=== PATIENT | female | born 2000 | race Caucasian/White ===

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

== ENCOUNTER 2022-06-13 01:28 | Emergency (ER) | payer OTHER, SELFPAY ==
--- NOTE | ~2022-06-13 | CT_ITS ---
EXAMINATION: CT ABDOMEN AND PELVIS WITH CONTRAST CLINICAL INFORMATION: Right lower quadrant pain COMPARISON: None TECHNIQUE: Multidetector volumetric images were obtained from the superior aspect of the liver through the pubic symphysis following administration 85 mL of Omnipaque 350 intravenous contrast. Sagittal and coronal reformatted images were obtained on the technologist's workstation. Oral contrast: No This CT examination was performed using dose optimization techniques as appropriate, variously including the following: *Automated exposure control *Adjustment of mA and/or kV according to patient size (this includes techniques or standardized protocols for targeted exams where dose is matched to indication/reason for exam; i.e. extremities or head) *Use of iterative reconstruction technique DLP: 277 mGy-cm FINDINGS: LUNG BASES: The visualized lung bases are unremarkable. LIVER, GALLBLADDER, AND BILIARY TREE: The liver is normal in size, shape, and attenuation. No focal hepatic lesion or biliary ductal dilatation is present. The gallbladder is unremarkable. PANCREAS: Unremarkable. SPLEEN: Unremarkable. ADRENAL GLANDS: Unremarkable. KIDNEYS AND URETERS: Bilateral nephrograms are symmetric. No hydronephrosis or obstructing calculus identified. BLADDER: Mildly distended and grossly unremarkable. GASTROINTESTINAL TRACT: Assessment for wall thickening in some segments of the colon is limited due to luminal collapse. No evidence of bowel obstruction. Appendix appears nondilated, located in the lateral right lower quadrant along the pelvic sidewall. No free fluid or free air is seen. ABDOMINAL WALL: No significant hernia is appreciated. LYMPH NODES: Normal. VASCULAR: Unremarkable. PELVIC VISCERA: Unremarkable. OSSEOUS STRUCTURES: Bilateral L5 pars defects noted. CT/CT abdomen pelvis w IV con IMPRESSION: No findings to suggest appendicitis. There is limited assessment for wall thickening in some segments of the colon due to luminal collapse; the possibility of a mild colitis would be difficult to exclude in the proper clinical setting.
[2022-06-13 01:47] VITALS: BP 104/70; PULSE 65; RESP 16; TEMP 36.4; O2SAT 99; BMI 19.0
[2022-06-13 02:02] LABS: Hematocrit 41.2 % (37.0-47.0); Hemoglobin 13.2 g/dl (12.0-16.0); Mean Corpuscular Hemoglobin 25.8 pg (27.0-33.0); Mean Corpuscular Volume 80.5 fL (80.0-98.0); Mean Platelet Volume 10.2 fL (9.4-12.3); Platelet Count 242 X10*3/uL (160-400); Red Blood Count 5.12 X10*6/uL (4.20-5.50); Red Cell Distribution Width 13.5 % (11.0-16.0); White Blood Count 13.2 X10*3/uL (4.8-10.8)
[2022-06-13 02:05] LABS: Glucose, Whole Blood 99 mg/dL (60-115)
[2022-06-13] MEDS: 0.9 % Sodium Chloride 1,000 ML 999 ML IV (02:10)
[2022-06-13] MEDS: ondansetron HCL 4 MG/2 ML VIAL IVPUSH (02:11)
--- NOTE | 2022-06-13 02:13 | ED.NAVMDI ---
HPI - Nausea/Vomiting/Diarrhea General Chief complaint: Abdominal Pain Stated complaint: n/v/d Time Seen by Provider: 06/13/22 02:13 Source: patient and family (Mother) Mode of arrival: ambulatory History of Present Illness HPI Narrative: 22-year-old female without significant past medical history presents with onset of multiple episodes of nausea and vomiting as well as diarrhea approximately 2 hours ago but denies any abdominal pain and states her LMP was the 1st part of this month. As per the triage note patient reports mid abdominal pain but when I asked her she denied it. She otherwise denies any fever or chills and denies any urinary symptoms. Related Data Previous Rx's Medication Instructions Recorded ondansetron HCl 4 mg tablet 4 mg PO Q8H PRN nausea and 06/13/22 vomiting 4 days #7 tabs Allergies Allergy/AdvReac Type Severity Reaction Status Date / Time No Known Allergies Allergy Unverified 01/02/20 17:05 Review of Systems Review of Systems: Pertinent positives and negatives as stated in HPI [facility] Past Medical History Source: nursing notes reviewed Social History Social History Alcohol intake: never Smoked in Last 30 Days: No Use of substances other than those prescribed or required for medical reasons: No Advance Directives: No Advance Directives Information Provided: Yes Physical Exam Vital Signs: Vital Signs: Last Vital Signs Temp 98.3 F 06/13/22 02:59 Pulse 85 06/13/22 02:59 Resp 12 06/13/22 02:59 BP 98/57 L 06/13/22 02:59 Pulse Ox 99 06/13/22 02:59 O2 Del Method 06/13/22 02:59 BMI result Body Mass Index 19.0 VITAL SIGNS: Reviewed. GENERAL: Appears very slender, in mild distress. HEAD: Normocephalic/atraumatic EYES: PERRLA, EOMI LUNGS: Normal breath sounds. No adventitious sounds or accessory muscle use. SpO2<99> CARDIOVASCULAR: Regular rate and rhythm without noted murmurs ABDOMEN: Soft, non-tender, non-distended with bowel sounds. MUSCULOSKELETAL: No tenderness, deformities, or effusions noted on gross inspection. EXTREMITIES: No cyanosis, clubbing or edema. SKIN: Inspection of the skin reveals no rashes, but pasty color NEUROLOGIC: Alert and oriented x 3. Strength and sensation to light touch were grossly intact x 4. Medications Administered Discontinued Medications Generic Name Dose Route Start Last Admin Trade Name Landon PRN Reason Stop Dose Admin Sodium Chloride 1,000 mls @ 999 mls/hr 06/13/22 02:00 06/13/22 02:10 Ns IV 06/13/22 03:00 999 mls/hr .Q1H1M STA Administration Iohexol 85 ml 06/13/22 03:09 06/13/22 03:09 Iohexol 350 Mg/Ml 100 Ml Infus..Btl IV 06/13/22 03:10 85 ml ONCE ONE Administration Ondansetron HCl 4 mg 06/13/22 02:00 06/13/22 02:11 Ondansetron Hcl 4 Mg/2 Ml Vial IVPUSH 06/13/22 02:01 4 mg ONCE ONE Administration Medical Decision Making Medical Decision Making MDM Narrative: 22-year-old female with multiple episodes of nausea, vomiting, diarrhea with questionable abdominal discomfort and LMP 4 weeks ago as well as what sounds like a vasovagal episode while out in the waiting area. IV access was obtained she will receive IV for this as well as Zofran for nausea and will obtain basic lab work. On re-evaluation after IV fluids, antiemetics, patient is feeling much better and is tolerating oral intake and has significantly improved. On my evaluation of all investigations my interpretation is that patient has a gastroenteritis that led to significant volume depletion and a vasovagal episode. All results discussed with bedside with the patient. Differential Diagnosis Differential Diagnoses: The differential diagnosis associated with the presentation includes Please see the discussion above Lab Data 06/13/22 01:56 06/13/22 01:56 Labs: Lab Results 06/13/22 06/13/22 06/13/22 Range/Units 01:56 01:56 02:01 WBC 13.2 H (4.8-10.8) X10*3/uL RBC 5.12 (4.20-5.50) X10*6/uL Hgb 13.2 (12.0-16.0) g/dl Hct 41.2 (37.0-47.0) % MCV 80.5 (80.0-98.0) fL MCH 25.8 L (27.0-33.0) pg MCHC 32.0 (31.0-35.0) g/dl RDW 13.5 (11.0-16.0) % Plt Count 242 (160-400) X10*3/uL MPV 10.2 (9.4-12.3) fL Absolute Nucleated RBC 0.000 (0.0-0.012) X10*3/uL Nucleated RBC % (auto) 0.0 (0.0-0.2) /100WBC Sodium 140 (135-145) mmol/L Potassium 4.7 (3.3-5.1) mmol/L Chloride 108 (96-108) mmol/L Carbon Dioxide 22 (22-29) mmol/L Anion Gap 15 (12-20) BUN 18 H (9-16) mg/dL Creatinine 0.90 (0.5-1.4) mg/dL Estim Creat Clear Calc 74.2 Estimated GFR > 60 POC Glucose 99 (60-115) mg/dL Random Glucose 119 H (60-115) mg/dL Calcium 9.4 (8.4-10.2) mg/dL Total Bilirubin 0.5 (0.0-1.0) mg/dL Direct Bilirubin 0.2 (0.0-0.5) mg/dL AST 23 (5-31) U/L ALT 11 (0-31) U/L Alkaline Phosphatase 72 (39-117) U/L Total Protein 7.4 (6.5-8.0) g/dL Albumin 4.7 (3.5-5.0) g/dL Lipase 36 (8-78) U/L Beta HCG, Quant < 2 mIU/mL Urine Color Urine Appearance Urine pH (5.0-9.0) Ur Specific [place] (1.005-1.025) Urine Protein (Neg-Trace) mg/dL Urine Glucose (UA) (Negative) mg/dL Urine Ketones (Negative) mg/dL Urine Blood (Negative) Urine Nitrite (Negative) Ur Leukocyte Esterase (Negative) Urine RBC (0-2) /HPF Urine WBC (0-5) /HPF Ur Squamous Epith Cells (0-2) /HPF Urine Bacteria (None Seen) Hyaline Casts (0-2) /LPF Urine Opiates Screen (Not Detect) Urine Fentanyl Screen (Not Detect) Ur Barbiturates Screen (Not Detect) Ur Phencyclidine Scrn (Not Detect) Ur Amphetamines Screen (Not Detect) U Benzodiazepines Scrn (Not Detect) Urine Cocaine Screen (Not Detect) U Marijuana (THC) Screen (Not Detect) 06/13/22 06/13/22 Range/Units 03:35 03:35 WBC (4.8-10.8) X10*3/uL RBC (4.20-5.50) X10*6/uL Hgb (12.0-16.0) g/dl Hct (37.0-47.0) % MCV (80.0-98.0) fL MCH (27.0-33.0) pg MCHC (31.0-35.0) g/dl RDW (11.0-16.0) % Plt Count (160-400) X10*3/uL MPV (9.4-12.3) fL Absolute Nucleated RBC (0.0-0.012) X10*3/uL Nucleated RBC % (auto) (0.0-0.2) /100WBC Sodium (135-145) mmol/L Potassium (3.3-5.1) mmol/L Chloride (96-108) mmol/L Carbon Dioxide (22-29) mmol/L Anion Gap (12-20) BUN (9-16) mg/dL Creatinine (0.5-1.4) mg/dL Estim Creat Clear Calc Estimated GFR POC Glucose (60-115) mg/dL Random Glucose (60-115) mg/dL Calcium (8.4-10.2) mg/dL Total Bilirubin (0.0-1.0) mg/dL Direct Bilirubin (0.0-0.5) mg/dL AST (5-31) U/L ALT (0-31) U/L Alkaline Phosphatase (39-117) U/L Total Protein (6.5-8.0) g/dL Albumin (3.5-5.0) g/dL Lipase (8-78) U/L Beta HCG, Quant mIU/mL Urine Color Yellow Urine Appearance Clear Urine pH 6.0 (5.0-9.0) Ur Specific [place] >= 1.030 H (1.005-1.025) Urine Protein 30 (1+) H (Neg-Trace) mg/dL Urine Glucose (UA) Negative (Negative) mg/dL Urine Ketones Trace (Negative) mg/dL Urine Blood Negative (Negative) Urine Nitrite Negative (Negative) Ur Leukocyte Esterase Negative (Negative) Urine RBC 3-5 H (0-2) /HPF Urine WBC 0-5 (0-5) /HPF Ur Squamous Epith Cells 6-10 (0-2) /HPF Urine Bacteria None Seen (None Seen) Hyaline Casts 0-2 (0-2) /LPF Urine Opiates Screen Not Detected (Not Detect) Urine Fentanyl Screen Not Detected (Not Detect) Ur Barbiturates Screen Not Detected (Not Detect) Ur Phencyclidine Scrn Not Detected (Not Detect) Ur Amphetamines Screen Not Detected (Not Detect) U Benzodiazepines Scrn Not Detected (Not Detect) Urine Cocaine Screen Not Detected (Not Detect) U Marijuana (THC) Screen Not Detected (Not Detect) Independent Interpretation I performed an independent interpretation of an: EKG Interpretation: Normal sinus rhythm, HR-59, no STEMI, MO/QRS/QTC is within normal limits. Critical Care Time Critical Care Time Critical Care Time: Yes Total Critical Care Time: 30 Attestation: I personally attest to this time spent taking care of the patient. Discharge Plan Discharge Clinical Impression: Gastroenteritis, Syncope, vasovagal Patient Disposition: Home, Self-Care Instructions: Dehydration (ED), Syncope (ED), Gastroenteritis (ED) Additional Instructions: 1. Increase amount of fluid intake, especially with water. 2. A prescription for antinausea medication has been sent to your pharmacy. 3. I highly recommend that you follow-up with your primary care provider in the next 1-2 days by calling the office in the morning and setting an appointment for re-evaluation. Return to the ER for any worsening symptoms. Prescriptions: New ondansetron HCl 4 mg tablet 4 mg PO Q8H PRN (Reason: nausea and vomiting) 4 Days Qty: 7 0RF
--- NOTE | 2022-06-13 02:15 | PC.NURSE ---
pt a&o, no sob or chest pain, pt taken to draw labs and all of sudden started to pass out, pt pale and weak, pt taken to room in wheel chair, EKG, poc, labs and Iv placed, pt medicated per mar. Provider at the bedside to assess and perform a ultrasound of the abd at the bedside.
--- NOTE | 2022-06-13 02:30 | PC.NURSE ---
Addendum entered by Blessing Pina 06/13/22 04:15: PO fluids and crackers tolerated, denies nausea. States feeling better . Mom at bedside. Original Note: Pt awake and alert, pale in color, cool to touch, came in after N/V and syncopal episode in the waiting room, IV line placed, meds given as documented, provider at bedside.
[2022-06-13 02:31] LABS: Alanine Aminotransferase 11 U/L (0-31); Albumin Level 4.7 g/dL (3.5-5.0); Alkaline Phosphatase 72 U/L (39-117); Anion Gap 15 (12-20); Aspartate Amino Transferase 23 U/L (5-31); Bilirubin Direct 0.2 mg/dL (0.0-0.5); Bilirubin Total 0.5 mg/dL (0.0-1.0); Blood Urea Nitrogen 18 mg/dL (9-16); Calcium 9.4 mg/dL (8.4-10.2); Carbon Dioxide 22 mmol/L (22-29); Chloride 108 mmol/L (96-108); Creatinine Clr Calc Pharmacy 74.2; Estimated Glomerular Filt Rate > 60; Glucose Random 119 mg/dL (60-115); Lipase 36 U/L (8-78); Potassium 4.7 mmol/L (3.3-5.1); Sodium 140 mmol/L (135-145); Total Protein 7.4 g/dL (6.5-8.0)
[2022-06-13 02:33] LABS: HCG Quantitative < 2 mIU/mL
[2022-06-13 02:59] VITALS: BP 98/57; PULSE 85; RESP 12; TEMP 36.8; O2SAT 99
[2022-06-13] MEDS: iohexoL 350 MG/ML 100 ML INFUS..BTL 85 ML IV (03:09)
[2022-06-13 03:41] LABS: Appearance Urine Clear; Color Urine Yellow; Glucose Urine UA Negative (Negative); Leukocyte Esterase Urine Negative (Negative); Nitrite Urine Negative (Negative); Specific Gravity - Urine >= 1.030 (1.005-1.025); UMIC TRIGGER UACC YES; Urine Blood Negative (Negative); Urine Ketones Trace mg/dL (Negative); Urine Protein 30 (1+) mg/dL (Neg-Trace)
[2022-06-13 03:46] LABS: Bacteria Urine None Seen (None Seen); Hyaline Casts Urine 0-2 /LPF (0-2); WBC Urine 0-5 /HPF (0-5)
[2022-06-13 03:52] LABS: Amphetamine Screen Urine Not Detected (Not Detect); Barbiturates, Urine Not Detected (Not Detect); Benzodiazepines Screen Urine Not Detected (Not Detect); Cannabinoid Screen Urine Not Detected (Not Detect); Cocaine Screen Urine Not Detected (Not Detect); Fentanyl, urine Not Detected (Not Detect); Opiate Screen Urine Not Detected (Not Detect); Phencyclidine Screen Urine Not Detected (Not Detect)
--- NOTE | 2022-06-13 07:49 | ECG_ITS ---
Test Reason : CHEST PAIN Blood Pressure : / mmHG Vent. Rate : 059 BPM Atrial Rate : 059 BPM P-R Int : 128 ms QRS Dur : 084 ms QT Int : 414 ms P-R-T Axes : 073 067 035 degrees QTc Int : 409 ms Sinus bradycardia Otherwise normal ECG No previous ECGs available Referred By: Rosio Gordon Electronically Signed By:JUVENCIO SALAZAR MD
== END 2022-06-13 04:28 | disposition home or self-care (01) ==
PROVIDERS: Emergency Provider Student in an Organized Health Care Education/Training Program
DX: K52.9 Noninfective gastroenteritis and colitis, unspecified (principal); R55 Syncope and collapse; E86.0 Dehydration; R11.2 Nausea with vomiting, unspecified; R10.9 Unspecified abdominal pain; R00.1 Bradycardia, unspecified; R63.6 Underweight; Z68.1 Body mass index [BMI] 19.9 or less, adult
CPT/HCPCS: 36415; 74177; 80053; 80307; 81001; 82248; 82947; 83690; 84702; 85027; 93005; 96361; 96374; 99284; 99285; J2405; Q9967

== ENCOUNTER 2024-03-08 14:59 | Outpatient (AMB) | payer OTHER, SELFPAY ==
[2024-03-08 15:02] VITALS: BP 106/62; PULSE 76; O2SAT 98; BMI 19.2
--- NOTE | 2024-03-08 15:02 | AM.OFFWIN_ITS ---
Intake Vital Signs 03/08/24 15:02 Height 5 ft 2 in Weight 105 lb BMI 19.2 BP 106/62 Blood Pressure Location Rt brachial Position Sitting Pulse 76 Pulse Source Pulse Oximeter Pulse Oximetry (%) 98 Intake Visit Reasons: EP Nausea, feels faint Intake Note: pt is here for nausea, feels faint, ongoing for 4 or 5 days Patient Tobacco Use Status: Never used Tobacco Allergies No Known Allergies Allergy (Verified 03/08/24 15:03) Do you need a note to return to daycare/school/sports/work: No HPI HPI Comments History of Present Illness Details 23 y/o female patient who presents to [facility] walk [facility] clinic with c/o Nausea and poor appetite. Reports feeling weak, tired and low energy for the past 4-5 days. Denies vomiting, fevers or chills. Sexually active with 1 male partner - Condoms. LMP:Last week. No contraception besides Condoms. She works as a [employer] and she does work long hours and sometimes goes without eating for hours. Reports forcing herself to eat, because she does not have good appetite. She reports going to the Gym daily, and usually does lift heavy weights. Denies any mental health problems. Denies Bulimia or Anorexia Nervosa. She was seen by Pediatrics until the Age of 22. She has an Appointment with Adult PCP next year 07/2024. Denies any chronic medical problems and does not take any prescribed medications. [facility] Social History (System 01/31/23 @ 12:49 by Beatrice Leong) Alcohol intake: never Patient Tobacco Use Status: Never used Tobacco Review of Systems Const All systems reviewed & are unremarkable except as noted in HPI and below Physical Exam Vital Signs: Last Vital Signs Pulse 76 03/08/24 15:02 BP 106/62 03/08/24 15:02 Pulse Ox 98 03/08/24 15:02 BMI result Body Mass Index 19.2 Const General: cooperative, comfortable and no acute distress Nutritional Appearance: thin Orientation/consciousness: patient oriented x3 GI Inspection: Yes normal to inspection Palpation (GI): Soft to palpation, not firm, nontender, no guarding, not rigid and No hepatosplenomegaly present Auscultation: normal bowel sounds Rectal Exam - Female: deferred General: Yes no CVA tenderness Back/Spine/Pelvis Back: no CVA tenderness Neuro General: patient oriented x3, gait normal and moves all extremities Psych Speech and movement: Normal speech and movement present Results AMB Test Urine AMB Test Urine Negative Last Edit by Reena Sanchez CMA on 15:33 Results Reviewed Results Reviewed: Laboratory Last Values Tst Clinic Negative 03/08/24 15:32 Assessment & Plan Assessment & Plan (1) Nausea and vomiting in adult: Code(s): R11.2 - Nausea with vomiting, unspecified Plan: Ordered Urine HCG (NEGATIVE) Ordered Zofran F/U with PCP as scheduled. Avoid Oily, Spicy and [place] foods. Orders: Orders AMB HCG Urine Test Today Z32.02 - Encounter for test, result negative Medications: New ondansetron 8 mg PO Q8H 30 tabs 0RF R11.2 - Nausea with vomiting, unspecified Discontinued ondansetron HCl Discontinued Reason: Patient Completed Course 4 mg PO Q8H 4 days PRN 7 tabs 0RF nausea and vomiting Coding Level of Care Code Est Pt Level 3 (39168) Diagnoses Nausea and vomiting in adult R11.2 Time Spent (min) 15
== END 2024-03-08 15:52 | disposition home or self-care (01) ==
PROVIDERS: PCP Nurse Practitioner Family; Visit Provider Nurse Practitioner Family
DX: Z32.02 Encounter for pregnancy test, result negative (principal); R11.2 Nausea with vomiting, unspecified

== ENCOUNTER → 2024-03-08 14:59 | Outpatient (BNVA) | payer OTHER, MEDICAID, SELFPAY | PROVIDERS: PCP Nurse Practitioner Family; Visit Provider Nurse Practitioner Family | DX: R11.2 Nausea with vomiting, unspecified (principal); Z32.02 Encounter for pregnancy test, result negative | CPT/HCPCS: 81025 ==

== ENCOUNTER 2024-03-11 11:45 | Emergency (ER) | payer OTHER, SELFPAY ==
[2024-03-11 11:56] VITALS: BP 115/55; PULSE 62; RESP 16; TEMP 36.6; O2SAT 100; BMI 19.3
--- NOTE | 2024-03-11 12:04 | ED.GENADULT ---
HPI - General Adult General Chief complaint: Nausea/Vomiting/Diarrhea Stated complaint: nausea, dizzy Time Seen by Provider: 03/11/24 13:37 Source: patient Mode of arrival: ambulatory Limitations: no limitations History of Present Illness ED Provider: Nicky JOEL narrative: Patient is a 23-year-old female presenting to the ED with complaint of nausea after eating, denies nausea otherwise, as well as decreased appetite and lightheadedness for the past week. Denies abdominal pain, back or flank pain. States she is only eating around 1.5 meals per day, is also working out. Denies vomiting, diarrhea, constipation. Denies fevers. Denies chest pain, palpitations, dyspnea. Denies any changes in menstruation. Denies recent unprotected intercourse. Tolerating fluids without difficulty. MD complaint: nausea Onset (ago): week(s) Treatments prior to arrival: none Related Data Previous Rx's ?Medication ?Instructions ?Recorded ondansetron 8 mg disintegrating 8 mg PO Q8H #30 tabs 03/08/24 tablet famotidine 20 mg tablet 20 mg PO DAILY #14 tabs 03/11/24 Allergies Allergy/AdvReac Type Severity Reaction Status Date / Time No Known Allergies Allergy Verified 03/11/24 11:58 Review of Systems Review of Systems: As per HPI. Yes all other systems are reviewed and are negative Constitutional: Constitutional: Reports as per HPI [facility] Social History Social History (System 01/31/23 @ 12:49 by Beatrice Leong) Alcohol intake: never Patient Tobacco Use Status: Never used Tobacco Advance Directives: No Advance Directives Information Provided: Yes Do you have a plan to hurt others: No Plan Physical Exam ED Vital Signs: Vital Signs - 24 hr 03/11/24 11:56 03/11/24 13:34 03/11/24 14:15 Temperature 97.9 F 97 F Pulse Rate 62 56 Respiratory Rate 16 17 Blood Pressure 115/55 L 94/40 L Pulse Oximetry 100 100 Oxygen Delivery Method Room Air Room Air Room Air 03/11/24 14:22 03/11/24 14:23 03/11/24 14:23 Temperature Pulse Rate 56 60 80 Respiratory Rate Blood Pressure 94/40 L 94/53 L 106/73 Pulse Oximetry Oxygen Delivery Method BMI result Body Mass Index 19.3 Vital signs have been reviewed and appear to be correct. Blood pressure normal. Heart rate normal. Respiratory rate normal. Temperature normal. Oxygen saturation normal. Const General: cooperative, healthy appearing and no acute distress Orientation/consciousness: oriented to person, oriented to place, oriented to time and patient oriented x3 Limitations: no limitations HENMT Head: Yes normocephalic and Yes atraumatic Ears: external ears normal General nose exam: Normal external nose present Face and sinus: Yes face symmetric Mouth: oropharynx normal and moist mucous membranes Throat: Yes uvula midline Eyes Pupils: Equal, round and reactive pupils present Neck Neck: Yes normal visual inspection and Yes supple Resp Effort & Inspection: normal respiratory effort and able to speak in complete sentences Auscultation: clear to auscultation bilaterally Cardio Rate: regular rate Rhythm: regular rhythm Heart sounds: S1 normal heart sound present and S2 normal heart sound present GI Palpation (GI): Soft to palpation and nontender Auscultation: normoactive bowel sounds General: Yes no CVA tenderness Back/Spine/Pelvis Back: no CVA tenderness Skin General skin exam: elasticity normal and turgor normal Neuro General: oriented to person, oriented to place, oriented to time, patient oriented x3, moves all extremities, no focal motor deficits and CN's II-XI intact bilaterally Cranial nerves: Yes Equal, round and reactive pupils present Cognition (Neuro): normal cognition Extrem General: Yes full ROM, Yes no pedal edema and Yes no calf tenderness Psych Mental Status: mental status grossly normal Affect: normal affect Thought process: Normal thought process present Course Course Course Narrative: RME performed by Lenka Bolanos PA-C. Patient is a 23 year old assigned female at presenting to the emergency department with nausea, dizziness, and left breast pain. Patient states that over the last week she has had nausea, dizziness, and intermittent left breast pain. Patient states that she was previously told she had a left breast cyst. Detailed physical exam and review of systems are deferred to the physical therapy resident. Labs ordered. Patient placed back in the waiting room pending room availability and results. Medical Decision Making Medical Decision Making MDM Narrative: Patient is a 23-year-old female presenting to the ED with complaint of nausea after eating, denies nausea otherwise, as well as decreased appetite and lightheadedness for the past week. On exam patient is awake, A+Ox3, VS WNL, afebrile, normal neurological exam without focal deficits, physical exam findings as above. Given reported symptoms and physical exam findings, initial differential includes dehydration, electrolyte abnormality, gastritis, GERD, PUD, , UTI. Labs notable for mild anemia, not at transfusable level, no significant electrolyte abnormalities, negative HCG. No evidence of infection on urinalysis. Some mild orthostatic intolerance. Results discussed with patient and all questions answered. Advised patient to make slow transitions with position changes, increase fluid intake. Will refer to GI for further evaluation of symptoms. Will start on famotidine to see if this decreases her symptoms. Return precautions discussed. Patient verbalized understanding of and agreement with plan. Differential Diagnosis Differential Diagnoses: The differential diagnosis associated with the presentation includes As per [facility] Admission/Observation Consideration of admission/observation: Escalation of care including admission/observation considered Patient would have been admitted to the hospital had their work up had any findings where hospital admission was appropriate and their clinical presentation warranted hospital admission. Lab Data [facility] Lab Attestation statement: I reviewed the patient's lab results. As per [facility] 03/11/24 12:13 03/11/24 12:13 Labs: Lab Results 03/11/24 03/11/24 Range/Units 12:13 14:10 WBC 5.3 (4.8-10.8) X10*3/uL RBC 4.52 (4.20-5.50) X10*6/uL Hgb 11.7 L (12.0-16.0) g/dl Hct 35.5 L (37.0-47.0) % MCV 78.5 L (80.0-98.0) fL MCH 25.9 L (27.0-33.0) pg MCHC 33.0 (31.0-35.0) g/dl RDW 14.4 (11.0-16.0) % Plt Count 235 (160-400) X10*3/uL MPV 10.0 (9.4-12.3) fL Immature Gran % (Auto) 0.4 (0.0-0.4) % Neut % (Auto) 52.8 (45-73) % Lymph % (Auto) 39.8 (20-40) % Villalba % (Auto) 5.8 (2-11) % Eos % (Auto) 0.4 (0-4) % Baso % (Auto) 0.8 (0-2) % Lymph # (Auto) 2.1 (1.2-4.9) X10*3/uL [place] # (Auto) 0.3 (0.1-1.2) X10*3/uL Eos # (Auto) 0.0 (0.0-0.4) X10*3/uL Baso # (Auto) 0.0 (0.0-0.2) X10*3/uL Abs Immat Gran (auto) 0.02 (0.00-0.03) X10*3/uL Absolute Neuts (auto) 2.8 (2.0-8.3) x10*3/uL Absolute Nucleated RBC 0.000 (0.0-0.012) X10*3/uL Nucleated RBC % (auto) 0.0 (0.0-0.2) /100WBC Sodium 136 (135-145) mmol/L Potassium 3.5 (3.3-5.1) mmol/L Chloride 106 (96-108) mmol/L Carbon Dioxide 22 (22-29) mmol/L Anion Gap 12 (12-20) BUN 13 (9-16) mg/dL Creatinine 0.78 (0.5-1.4) mg/dL Estim Creat Clear Calc 88.9 Estimated GFR > 60 Random Glucose 104 (60-115) mg/dL Calcium 9.3 (8.4-10.2) mg/dL Magnesium 2.0 (1.6-2.6) mg/dL Total Bilirubin 0.4 (0.0-1.0) mg/dL AST 28 (5-31) U/L ALT 13 (0-31) U/L Alkaline Phosphatase 56 (39-117) U/L Total Protein 6.8 (6.5-8.0) g/dL Albumin 4.4 (3.5-5.0) g/dL Beta HCG, Quant < 2 mIU/mL Urine Color Yellow Urine Appearance Clear Urine pH 7.0 (5.0-9.0) Ur Specific [place] 1.025 (1.005-1.025) Urine Protein Negative (Neg-Trace) mg/dL Urine Glucose (UA) Negative (Negative) mg/dL Urine Ketones Negative (Negative) mg/dL Urine Blood Negative (Negative) Urine Nitrite Negative (Negative) Ur Leukocyte Esterase Trace H (Negative) External Record Review External record reviewed: Inpatient record, Office record and Outpatient record Prescription Management I considered prescription management with: Other Discharge Plan Discharge Clinical Impression: Gastritis Patient Disposition: Home, Self-Care Instructions: Gastritis (DC), Diet for Stomach Ulcers and Gastritis (ED), Upper Endoscopy (DC) Additional Instructions: You were evaluated in the emergency department today for nausea and lightheadedness. Your labs were reassuring. Your blood pressure did drop slightly with going from laying to sitting to standing. We recommend that you change positions slowly to prevent injury/fall. Be sure to drink plenty of fluids. You are being prescribed famotidine for your symptoms. We recommend that you follow up with the puddler helper for further evaluation of your symptoms. Call their office to schedule an appointment. Return to the emergency department if you develop fever, persistent vomiting, blood in your vomit, severe abdominal pain, fainting or any other concerning symptoms. Prescriptions: New famotidine 20 mg tablet 20 mg PO DAILY Qty: 14 0RF No Action ondansetron 8 mg tablet,disintegrating 8 mg PO Q8H Qty: 30 0RF Referrals: [facility] [place] Gastroenterology Services [Provider Group] Stand Alone Forms: Work/School Release Print Language: Persian
[2024-03-11 12:16] LABS: MANUAL DIFF FLAG NO
[2024-03-11 12:20] LABS: Basophils Percent Auto 0.8 % (0-2); Eosinophils Percent Auto 0.4 % (0-4); Hematocrit 35.5 % (37.0-47.0); Hemoglobin 11.7 g/dl (12.0-16.0); Imm Gran Abs Auto 0.02 X10*3/uL (0.00-0.03); Imm Gran Pct Auto 0.4 % (0.0-0.4); Lymphocytes Absolute Auto 2.1 X10*3/uL (1.2-4.9); Lymphocytes Percent Auto 39.8 % (20-40); Mean Corpuscular Hemoglobin 25.9 pg (27.0-33.0); Mean Corpuscular Volume 78.5 fL (80.0-98.0); Monocytes Absolute Auto 0.3 X10*3/uL (0.1-1.2); Monocytes Percent Auto 5.8 % (2-11); Neutrophils Absolute Auto 2.8 x10*3/uL (2.0-8.3); Neutrophils Percent Auto 52.8 % (45-73); Platelet Count 235 X10*3/uL (160-400); Red Blood Count 4.52 X10*6/uL (4.20-5.50); Red Cell Distribution Width 14.4 % (11.0-16.0); White Blood Count 5.3 X10*3/uL (4.8-10.8)
[2024-03-11 12:38] LABS: Alanine Aminotransferase 13 U/L (0-31); Albumin Level 4.4 g/dL (3.5-5.0); Alkaline Phosphatase 56 U/L (39-117); Anion Gap 12 (12-20); Aspartate Amino Transferase 28 U/L (5-31); Bilirubin Total 0.4 mg/dL (0.0-1.0); Blood Urea Nitrogen 13 mg/dL (9-16); Calcium 9.3 mg/dL (8.4-10.2); Carbon Dioxide 22 mmol/L (22-29); Chloride 106 mmol/L (96-108); Creatinine Clr Calc Pharmacy 88.9; Estimated Glomerular Filt Rate > 60; Glucose Random 104 mg/dL (60-115); Potassium 3.5 mmol/L (3.3-5.1); Sodium 136 mmol/L (135-145); Total Protein 6.8 g/dL (6.5-8.0)
[2024-03-11 12:46] LABS: HCG Quantitative < 2 mIU/mL
[2024-03-11 14:15] VITALS: BP 94/40; PULSE 56; RESP 17; TEMP 36.1; O2SAT 100
[2024-03-11 14:20] LABS: Appearance Urine Clear; Color Urine Yellow; Glucose Urine UA Negative (Negative); Leukocyte Esterase Urine Trace (Negative); Nitrite Urine Negative (Negative); Specific Gravity - Urine 1.025 (1.005-1.025); UMIC TRIGGER UACC YES; Urine Blood Negative (Negative); Urine Ketones Negative (Negative); Urine Protein Negative (Neg-Trace)
[2024-03-11 14:22] VITALS: BP 94/40; PULSE 56
[2024-03-11 14:23] VITALS: BP 106/73; BP 94/53; PULSE 60; PULSE 80
[2024-03-11 14:35] LABS: Bacteria Urine None Seen (None Seen); Hyaline Casts Urine 0-2 /LPF (0-2); RBC Urine 0-2 /HPF (0-2); WBC Urine 0-5 /HPF (0-5)
[2024-03-11 15:01] VITALS: BP 106/73; PULSE 80; RESP 18; TEMP 36.1; O2SAT 100
== END 2024-03-11 15:02 | disposition home or self-care (01) ==
PROVIDERS: Physician Assistant Medical; Emergency Provider Emergency Medicine; PCP Nurse Practitioner Family
DX: K29.70 Gastritis, unspecified, without bleeding (principal); R10.9 Unspecified abdominal pain; R11.0 Nausea; R63.0 Anorexia; R42 Dizziness and giddiness; Z68.1 Body mass index [BMI] 19.9 or less, adult
CPT/HCPCS: 36415; 80053; 81001; 83735; 84702; 85025; 99283; 99284

== ENCOUNTER 2024-05-09 12:27 | Outpatient (AMB) | payer OTHER, SELFPAY ==
--- NOTE | 2024-05-09 13:11 | MHC.OFFWIV ---
Intake Vital Signs 05/09/24 13:13 Weight 108 lb BP 102/60 Blood Pressure Location Rt brachial Position Sitting Pulse 59 Pulse Source Pulse Oximeter Pulse Oximetry (%) 99 Oxygen Delivery Method Room Air Intake Visit Reasons: EP chest pain, difficulty breathing Intake Note: Patient here for chest pain/tightness, difficulty breathing. Patient Tobacco Use Status: Never used Tobacco Allergies No Known Allergies Allergy (Verified 05/09/24 13:14) Do you need a note to return to daycare/school/sports/work: No HPI HPI Comments History of Present Illness Details History of Present Illness The patient is a 24-year-old female presenting with dizziness and chest pain. - Her symptoms began about five to six days prior to the visit, characterized by dizziness and chest pain with some radiating discomfort to the back. - The patient has also experienced nausea and excessive sweating episodes, especially after feeling hot . - There is no current cough, congestion, or known recent exposure to illnesses. No ear pain, sinus pain or headaches. - Her medical history includes asthma, which primarily affected her during childhood. - Current symptoms may be related to a reactivation of asthma, as she does not have access to an inhaler and cold air might be a trigger. - She denies any history of anxiety or increased stress levels that could contribute to these symptoms. Physical Exam General: Cooperative, healthy appearing, comfortable, no acute distress and well developed Orientation: Patient oriented x3 Limitations: No limitations Head: Normal to inspection Ears: Hearing grossly normal bilaterally Nose: Normal external nose present Face and sinus: Normal facial exam Eyes: Appearance normal, both eyes and all related structures Neck: Normal visual inspection and Yes full ROM Respiratory: Normal respiratory effort and able to speak in complete sentences. Clear to auscultation bilaterally, no wheezing noted Cardiovascular: Regular rate and rhythm. Normal S1 and S2 Skin: No rashes or lesions noted Neuro: Patient oriented x3 Extremities: Normal to inspection [facility] Social History (System 01/31/23 @ 12:49 by Beatrice Leong) Alcohol intake: never Patient Tobacco Use Status: Never used Tobacco Review of Systems Const All systems reviewed & are unremarkable except as noted in HPI and below Physical Exam Vital Signs: Last Vital Signs Pulse 59 05/09/24 13:13 BP 102/60 05/09/24 13:13 Pulse Ox 99 05/09/24 13:13 Oxygen Delivery Method Room Air 05/09/24 13:13 Office Procedures EKG Details: 62BPM NSR no acute st or t wave changes 38066-[id number], Complete Assessment & Plan Assessment & Plan (1) Chest pain: Code(s): R07.9 - Chest pain, unspecified Qualifiers: Chest pain type: other chest pain Qualified Code(s): R07.89 - Other chest pain Plan: Vital signs are normal with an oxygen saturation of 99%, heart rate at 60 bpm, and blood pressure normal. The primary focus is on managing potential reactivation of asthma causing dizziness and chest pain. As symptoms may be precipitated by cold air, a nebulizer treatment was provided to assess improvement. Gave pt albuterol inhaler in office with relief of symptoms. This suggests asthma as the cause; thus, an inhaler will be prescribed for use during similar exposures. Her EKG NSR @62BPM with no acute st or t wave changes and physical evaluation have shown no urgent issues; therefore, symptom control with proper medication (inhaler) and avoiding triggers (cold air) will be emphasized. Sent albuterol inhaler to pharmacy. Patient was informed and verbally consented to the use of an ambient scribe for clinic note documentation during this visit. Orders: Orders AMB Nebulizer Treatment Today R07.89 - Other chest pain Medications: New albuterol sulfate 2.5 mg (3 mL) inhalation ONCE 3 mL 0RF wheezing R07.89 - Other chest pain albuterol sulfate 90 mcg/actuation 2 puffs inhalation Q6H PRN 8.5 grams 0RF shortness of breath or wheezing or cough Coding Level of Care Code New Pt Level 4 (29096) Diagnoses Other chest pain R07.89 Chest pain type: other chest pain CPT Codes EKG - CPT: 41670-[id number], Complete ([id number])
[2024-05-09 13:13] VITALS: BP 102/60; PULSE 59; O2SAT 99
== END 2024-05-09 14:15 | disposition home or self-care (01) ==
PROVIDERS: Visit Provider Physician Assistant
DX: R07.89 Other chest pain (principal)

== ENCOUNTER → 2024-05-09 12:27 | Outpatient (BNVA) | payer OTHER, SELFPAY | PROVIDERS: Visit Provider Physician Assistant | DX: R07.89 Other chest pain (principal); J45.909 Unspecified asthma, uncomplicated | CPT/HCPCS: 93005; 94640 ==

== ENCOUNTER 2024-06-03 09:32 | Outpatient (AMB) | payer SELFPAY ==
--- OUTSIDE RECORDS SUMMARY | 2024-06-03 09:35 | XMS_ITS | Encounter Summary ---
Author Organization [facility] Address [address] [place] [address] Phone Care Team Providers Care Coater Slate Name Role Phone Lazara Valdez MD Primary Care Provider Encounter Details Date Type Department Care Team (Late st Contact Info) Description 12/18/2009 Documentation [facility] Family Medicine [address] [place] [address] Family Medicine, Physician [address] [place], [place] [phone] Social History Tobacco Use Types Packs/Day Years Used Date Smoking Tobacco: Never Assessed Comments Unknown Sex and Gender Information Value Date Recorded Sex Assigned at Not on file Legal Sex Female 5:12 PM EDT Gender Identity Not on file Sexual Orientation Not on file documented as of this encounter Plan of Treatment Not on file documented as of this encounter Visit Diagnoses Not on filedocumented in this encounter Care Teams Coater Slate Relationship Specialty Start Date End Date Lazara Valdez MD [address] [place] [phone] PCP - General 11/25/16 03/27/23 documented as of this encounter
--- OUTSIDE RECORDS SUMMARY | 2024-06-03 09:35 | XMS_ITS | Encounter Summary ---
Author Organization [facility] Address [address] [place] [phone] Phone Care Team Providers Care Compliance Spec Name Role Phone Lazara Valdez MD Primary Care Provider Encounter Details Date Type Department Care Team (Late st Contact Info) Description 12/01/2016 Conversion Encounter [facility] [address] [place] [address] Social History Tobacco Use Types Packs/Day Years Used Date Smoking Tobacco: Never Comments:Never smoker Comments Unknown Sex and Gender Information Value Date Recorded Sex Assigned at Not on file Legal Sex Female 5:12 PM EDT Gender Identity Not on file Sexual Orientation Not on file documented as of this encounter Plan of Treatment Not on file documented as of this encounter Visit Diagnoses Not on filedocumented in this encounter Care Teams Compliance Spec Relationship Specialty Start Date End Date Lazara Valdez MD [address] [place] [address] PCP - General 11/25/16 03/27/23 documented as of this encounter
--- OUTSIDE RECORDS SUMMARY | 2024-06-03 09:35 | XMS_ITS | Encounter Summary ---
Author Organization [facility] Address [address] [place] [phone] Phone Care Team Providers Care Track Service Worker Name Role Phone Lazara Valdez MD Primary Care Provider Encounter Details Date Type Department Care Team (Late st Contact Info) Description 12/31/2009 Documentation [facility] Family Medicine [address] [place], [place] [phone] Family Medicine, Physician [address] [place], [place] [phone] Social History Tobacco Use Types Packs/Day Years [...] on filedocumented in this encounter Care Teams Track Service Worker Relationship Specialty Start Date End Date Lazara Valdez MD [address] [place] [phone] PCP - General 11/25/16 03/27/23 documented as of this encounter
--- OUTSIDE RECORDS SUMMARY | 2024-06-03 09:35 | XMS_ITS | Encounter Summary ---
Author Organization [facility] Address [address] [place] [address] Phone Care Team Providers Care [employer] Name Role Phone Lazara Valdez MD Primary Care Provider Encounter Details Date Type Department Care Team (Late st Contact Info) Description 01/06/2016 Documentation [facility] [place] Family Medicine [address] [place], [place] [phone] Family Medicine, Physician [address] [place], [place] [address]331 Social History Tobacco Use Types Packs/Day Years [...] on filedocumented in this encounter Care Teams [employer] Relationship Specialty Start Date End Date Lazara Valdez MD [address] [place] [phone] PCP - General 11/25/16 03/27/23 documented as of this encounter
--- OUTSIDE RECORDS SUMMARY | 2024-06-03 09:35 | XMS_ITS | Encounter Summary ---
Author Organization [facility] Address [address] [place] [address] Phone Care Team Providers Care Taker Away Name Role Phone Lazara Valdez MD Primary Care Provider Encounter Details Date Type Department Care Team (Late st Contact Info) Description 01/05/[address] [facility] Family Medicine [address] [place], [place] [phone] Family Medicine, Physician [address] [place], [place] [phone] Social History Tobacco Use Types Packs/Day Years [...] on filedocumented in this encounter Care Teams Taker Away Relationship Specialty Start Date End Date Lazara Valdez MD [address] [place] [phone] PCP - General 11/25/16 03/27/23 documented as of this encounter
--- OUTSIDE RECORDS SUMMARY | 2024-06-03 09:35 | XMS_ITS | Encounter Summary ---
Author Organization [facility] Address [address] [place] [address] Phone Care Team Providers Care Crane Engineer Name Role Phone Lazara Valdez MD Primary Care Provider Encounter Details Date Type Department Care Team (Late st Contact Info) Description 03/06/2010 Documentation [facility] [place] [address] [place], [place] [phone] Family Medicine, Physician [address] [place], [place] [address] Social History Tobacco Use Types Packs/Day Years [...] on filedocumented in this encounter Care Teams Crane Engineer Relationship Specialty Start Date End Date Lazara Valdez MD [address] [place] [phone] PCP - General 11/25/16 03/27/23 documented as of this encounter
--- OUTSIDE RECORDS SUMMARY | 2024-06-03 09:35 | XMS_ITS | Encounter Summary ---
Author Organization [facility] Address [address] [place] [phone] Phone Care Team Providers Care Tag Stringer Name Role Phone Lazara Valdez MD Primary Care Provider [phone] Encounter Details Date Type Department Care Team (Late st Contact Info) Description 12/28/2013 Documentation [facility] Family Medicine [address] [place], [place] [phone] Family Medicine, Physician [address] [place], [place] [address] Social History Tobacco Use Types Packs/Day Years [...] on filedocumented in this encounter Care Teams Tag Stringer Relationship Specialty Start Date End Date Lazara Valdez MD [address] [place] [phone] PCP - General 11/25/16 03/27/23 documented as of this encounter
--- OUTSIDE RECORDS SUMMARY | 2024-06-03 09:35 | XMS_ITS | Clinical Summary ---
Author Organization [facility] Address [address] [place] [phone] Phone Care Team Providers Care Smoking Tobacco Packer Hand Name Role Phone Unavailable Primary Care Provider Unavailabl e Allergies No known active allergies Medications albuterol HFA 108 (90 Base) MCG/ACT inhaler PROAIR HFA; inhale 2 puff by inhalation route every 4 - 6 hours as needed; 90 MCG; 08/29/2016; Active 7 Active Spacer/Aero-Holdi ng Chambers (OPTICHAMBER ADVANTAGE) miscIndications:M ild intermittent asthma without complication Use with MDI as instructed 1 each 8 Active Active Problems Problem Noted Date Diagnosed Date Anxiety 01/06/2022 Assessment & Plan (01/20/2022 10:40 AM EDT): Pt. With ongoing symptoms of anxiety as well as low appetite, difficulty with sleep made more difficult by current breakup. Pt. Would benefit from CBT strategies to notice thinking patterns and support coping. PLAN: 1. Follow up with [facility] two weeks 2. Patient goal is to report a reduction in time spent overthinking at night to improve ability to fall asleep. 3. Behavioral Recommendations: a. Do some type of physical activity daily, even just getting outdoors for brief walk. b. Do one thing enjoy each day. c. Allow time to feel sadness Assessment & Plan (01/06/2022 12:12 PM EDT): Pt. With ongoing symptoms of anxiety as well as low appetite, difficulty with sleep made more difficult by current breakup. Pt. Would benefit from CBT strategies to notice thinking patterns and support coping. PLAN: 1. Follow up with [facility] two weeks 2. Patient goal is to report a reduction in time spent overthinking at night to improve ability to fall asleep. 3. Behavioral Recommendations: a. Do some type of physical activity daily, even just getting outdoors for brief walk. b. Do one thing enjoy each day. c. Allow time to feel sadness History of COVID-19 04/21/2021 Overview (04/21/2021): 03/19/21 - stuffy nose, loss of taste and smell, headache, some difficulty breathing with activity 04/20/21 feeling weak a month later Innocent heart murmur 12/18/2020 Overview (12/18/2020): Persistent 12/2020. Assessment & Plan (12/18/2020 2:49 PM EDT): Per patient, she has always been told this. Persistent 12/2020. Mild intermittent asthma without complication Overview (12/05/2017): Albuterol as needed Resolved Problems Problem Noted Date Diagnosed Date Resolved Date Need for case management follow-up 01/08/2020 12/10/2020 Overview (01/08/2020): STD screen not done due to national shortage of tests Other headache syndrome 10/23/201811/16 Overview (01/08/2020): Seen by Dr. Musa, Neurologist, in October 2018. [place] to have migraine without aura - given Sumatriptan 50 mg, 1 tab as needed daily and instructed to avoid possible triggers (cheese, wine, chocolate, MSG), eat and sleep regularly, avoid daily pain meds, limit screen time, light exercise daily. 2019 - saw a chiropractor for a while which helped, now is doing okay, just lives with it Encounters Date Type Department Care Team Description 04/15/2024 Telephone [facility] [address] [place] [address] Lazara Valdez MD medical records from Last 3 Months Immunizations Immunization Administration Dates Next Due DTaP 5 06/13/2006, 4,2002,08/07,2002 HPV Vaccine 9 Valent 07/21/2015,02/14/2015,12/02 Hep A, ped/adol 12/02/2014,02/12/2014 Hep B, ped/adol 01/13/2003,2002,2002 Hib (HbOC) 08/01/2003 Hib (PRP-T) 2002,2002,2002 IPV 06/13/2006, 3,2002,05/22 Influenza Split 01/10/2012,12/10/2010 Influenza, injectable, MDCK, preservative free, quadrivalent 03/23/2016 Influenza, injectable, quadrivalent 02/14/2015 Influenza, injectable, quadr ivalent, preservative free 03/01/2022,01/08/2020,01/03/2019,05/02,12/28/2013,01/11/2013 Influenza, injectable, trivalent 008,02/15/2007,03/17/2006,04/08 MMR 04/09/2003 MMRV 06/13/2006 Meningococcal B Trumenba 01/21/2021,01/08/2020 Meningococcal Conj (Menactra) MCV4P 01/03/2019,1 Pneumococcal Conjugate 2002,2002,08/2002 Tdap 02/12/2014 Varicella 04/09/2003 Family History Medical History Relation Name Comments Breast cancer Maternal Grandmother Osteoporosis Maternal Grandmother Thyroid disease Maternal Grandmother Relation Name Status Comments Father Alive Father: Alive a nd well Half-Sister Alive Half sister (M) : Alive and well Maternal Grandmother Mother Margie Hurst Alive Mother : Alive and well Other great grandmoth er: Diabetes mellitus Paternal Grandmother Alive Paterna l grandmother: Deafness Social History Tobacco Use Types Packs/Day Years Used Date Smoking Tobacco: Never Smokeless Tobacco: Never Tobacco Cessation:Counseling Given: Yes Comments:Never smoker Alcohol Use Standard Drinks/Week Comments No 0 (1 standard drink = 0.6 oz pur e alcohol) Hunger/Food Answer Date Recorded In the last 12 months, did y ou or your family ever eat less than you felt you should because there wasn't enough money for food? No 03/01/2022 Stable Housing Answer Date Recorded Are you worried that in the next 2 months you may not have stable housing? No 03/01/2022 Transportation Concerns Answer Date Rec orded In the last 12 months, have you or your family ever had to go without healthcare because you didn't have a way to get there? No 03/01/2022 Hazards in Home Answer Date Recorded Think about the place you li ve. Do you have problems with any of the following? Pests (mice or roaches), mold, no/not working smoke detectors, water leaks, no window guards. No 2021 Financing Utilities Answer Date Recorde d In the last 12 months, has t he electric, gas, oil, or water company threatened to shut off your services in your home? No 03/01/2022 Safety at Home Answer Date Recorded Are you or your family worried about feeling saf e in your home? No 03/01/2022 Outside Support Answer Date Recorded Do you feel that you need mo re support from other people or programs to help you care for yourself or your family? No 03/01/2022 Understanding Health Concerns Answer Da te Recorded Do you need help understandi ng your or your child's healthcare needs (diagnosis, medications, plan, etc.)? No 03/01/2022 Financing Health Concerns Answer Date R ecorded In the last 12 months, was t here a time when your child needed to see a doctor or get medications or supplies but could not because of cost? No 03/01/2022 Missing School or Work Answer Date Donavon rded Did you or your child miss s chool or work because of a health problem that could have been avoided? No 03/01/2022 Comments No Sex and Gender Information Value Date Recorded Sex Assigned at Not on file Legal Sex Female 5:12 PM EDT Gender Identity Not on file Sexual Orientation Not on file Last Filed Vital Signs Vital Sign Reading Time Taken Comments Blood Pressure 112/67 03/01/2022 10:43 AM EST Pulse 56 03/01/2022 10:43 AM EST Temperature 37.1 ??C (98.7 ??F) 11/25/2021 3:27 PM ED T Respiratory Rate - - Oxygen Saturation - - Inhaled Oxygen Concentration - - Weight 48.4 kg (106 lb 12.8 oz) 022 10:43 AM EST Height 159.5 cm (5' 2.8 ) 03/01/2022 10 :43 AM EST Body Mass Index 19.04 03/01/2022 10:43 AM EST Plan of Treatment Health Maintenance Due Date Last Done Comments Influenza Vaccines (#1) 2023 03/01/20, 01/08/2020, 01/03/2019, Additional history exists COVID-19 Vaccine ( season) 2023 09/15/2020, 08/18/2020 DTaP,Tdap,and Td Vaccines (7 - Td or Tdap) 02/13/2024 02/12/2014, 06/13/2006, 09/23/2003, Additional history exists Pneumococcal Vaccine Aged Out 2002, 2002, 2002 No longer eligible based on patient's age to complete this topic Hepatitis B Vaccines Completed 01/13/2003, 2002, 2002 HIB Vaccines Completed 08/01/2003, 09/16, 2002, Additional history exists IPV Vaccines Completed 06/13/2006, 12/17, 2002, Additional history exists MMR Vaccines Completed 06/13/2006, 04/09/2003 Varicella Vaccines Completed 06/13/2006, 04/09/2003 Hepatitis A Vaccines Completed 12/02/2014, 02/13/20 14 HPV Vaccines Completed 07/21/2015, 01/17, 12/02/2014 Meningococcal Vaccine Completed 01/03/2019, 014 Men B Vaccine Completed 01/21/2021, 01/08/2020 Procedures * Due to [place] state law, this organization might not be sharing sensitive test results. Procedure Name Priority Date/Time Associated Diagnosis Comments CHLAMYDIA AND GONORRHEA, AMPLIFIED Routine 03/01/2022 11:20 AM EST Encounter for screening examination for chlamydial infection from Last 3 Months or Most Recently Relevant to Health Maintenance Results * Due to [place] state law, this organization might not be sharing sensitive test results. * Chlamydia and Gonorrhoea, Amplified (03/01/2022 11:20 AM EST) Chlamydia Trachomatis, DNA Probe NEGATIVE (NEG) [facility] Comment: No Chlamydia Trachomatis RNA detected in this patient's sample ? (REFERENCE RANGE/NORMAL VALUE: NOT DETECTED) ? Note: This test uses gang hemstitching machine operator- mediated amplification method to detect rRNA from C. Trachomatis URINE GC AMP PROBE NEGATIVE (NEG) [facility] Comment: No Neisseria Gonorrhoeae RNA detected in this patient's sample ? (REFERENCE RANGE/NORMAL VALUE: NOT DETECTED) ? NOTE: This test uses gang hemstitching machine operator-mediated amplification method to detect rRNA from N.Gonorrhoeae. A negative result does not preclude infection. In the case of a negative urine result, testing of an endocervical(female) or urethral (male) specimen is recommended if there is high clinical suspicion of infection. Due to very high sensitivity of Nucleic Acid Amplification Test, false positive results may occur. Therefore, specimen handling is extremely important. In patients in whom the disease is unlikely, additional sample for testing should be considered after an initial positive result. The performance characteristics of this test have not been evaluated in children. The Aptima Combo2 assay is not intended for the evaluation of suspected sexual abuse or for other medico-legal indications. The ordering provider should assess if the patient had consensual sex without risk of sexual abuse. Consult the [facility] if needed. Contact phone number . Therapeutic failure or success cannot be determined with the Aptima Combo2 assay since nucleic acid may persist following appropriate antimicrobial therapy. The Centers for Disease Control and Prevention (CDC) recommends confirmatory retesting using culture or a different nucleic acid amplification test when positive results occur, if indicated. Testing performed or reported by [facility], a Service of [facility], [facility] [place] [address] Jaime Jones MD, Classifying Machine Operator [facility]# [id number] Urine (Urine) 03/01/2022 11: 20 AM EST 03/01/2022 7:50 PM EST us Lazara Valdez MD LAB MICROBIOLOGY - GENERAL ORDERABLES Final Result [facility] from Last 3 Months or Most Recently Relevant to Health Maintenance
--- NOTE | 2024-06-03 09:38 | A.OFFPC_ITS ---
Vital Signs 06/03/24 09:40 Height 5 ft 2.6 in Weight 105 lb 8 oz BMI 18.9 BP 112/60 Blood Pressure Location Lt brachial Position Sitting Pulse 66 Pulse Source Pulse Oximeter Temp 98 F Temp Source Temporal Artery Scan Pulse Oximetry (%) 98 Oxygen Delivery Method Room Air Intake Visit Reasons: establish care Intake Note: Patient is a new patient here to establish care for Wellness visit. Transferring care from [facility]. Medical records have been requested and have not received. Cruise Coordinator Required: No Robot Programmer: Not Required per policy Accompanied by: Self / Same As Patient Allergies No Known Allergies Allergy (Verified 06/03/24 09:58) Medication List - Last Reconciled 06/03/24 by Abigail Flores PA-C No Known Home Meds Tobacco use date assessed: 06/03/24 Dental Screening Dental Screen Date: 06/03/24 Did you have a dental visit in the last 12 months?: No Did you have a dental problem in the last 6 months where you did not have access to dental care?: No Was dental information given to patient?: No HPI establish care HPI Details 24-year-old female coming to the office for the 1st time. In review of the notes, patient was seen in walk-in clinic 05/09/2024 for chest pain and dizziness workup was negative patient was discharged home. patient was seen in [facility] 02/[facility] for gastritis started on famotidine and discharged home. Patient tells us today she we will have chest pain/tightness and shortness of breath occasionally while doing cardio. She 1st noticed this about 2 months ago when she began working out. She also mentions having or abdominal pain primarily with eating with diarrhea that follows. As a result she notices she eats lasts and smaller meals to avoid diarrhea. She also mentions having some breast pain on the left side that began several years ago was evaluated by her snowboarding instructor determined to likely be a cyst and advised to monitor. However in the last few months her pain has been more consistent and she has a family history of breast cancer would like this evaluated. [facility] Medical History (Updated 06/03/24 @ 10:14 by Abigail Flores PA-C) Asthma Surgical History No pertinent past surgical history Social History Housing: Condominium Alcohol intake: never Patient Tobacco Use Status: Never used Tobacco e-Cigarette/Vaping Use: Never Used Second Hand Smoke Exposure: No service: No Current occupational status: employed Current occupation: Cosmatologist Cognitive needs: No Hearing needs: No Vision needs: No Questionnaire PHQ-9 Over the last 2 weeks, how often have you been bothered by any of the following problems? 1. Little interest or pleasure in doing things: not at all 2. Feeling down, depressed, or hopeless: not at all 3. Trouble falling or staying asleep, or sleeping too much: not at all 4. Feeling tired or having little energy: not at all 5. Poor appetite or overeating: not at all 6. Feeling bad about yourself - or that you are a failure or have let yourself or your family down: not at all 7. Trouble concentrating on things, such as reading the newspaper or watching television: not at all 8. Moving or speaking so slowly that other people could have noticed. Or the opposite - being so fidgety or restless that you have been moving around a lot more than usual: not at all 9. Thoughts that you would be better off or of hurting yourself in some way: not at all Total score: 0 Depression Screening Interpretation: Negative Depression Screening Done: Yes Source: Developed by Drs. Jaime Mohr, Tamar Ibanez, Casper Mo and colleagues, with an educational juana from [employer]. Thrive Questionnaire Date Thrive assessed: 06/03/24 I am a: Patient What is your living situation today?: I have a steady place to live Within the past 12 months, did the food you bought not last and you didn't have the money to get more?: Never true Within the past 12 months, did you worry whether your food would run out before you got money to buy more?: Never true Do you have trouble paying for medicines?: No Do you have trouble getting transportation to medical appointments?: No Do you have trouble paying your heating and electricity bill?: No Do you have trouble taking care of your child, family member or friend?: No Do you have trouble with day-to-day activities such as bathing, preparing meals, shopping, managing finances, etc.?: No Are you currently unemployed and looking for a job?: No Are you interested in more education?: No Please select the resources that you would like help with: None Currently or been in a relationship where the following occur: No concerns reported THRIVE Score: 0 AUDIT C Alcohol Use Questionnaire (AUDIT-C) 1. How often do you have a drink containing alcohol?: Never Total Score: 0 ANGELITO-7 AMB Questionnaire ANGELITO-7 Date ANGELITO - 7 assessed: 06/03/24 Feeling nervous, anxious, or on edge: 0 = Not at all Not being able to stop or control worryin = Not at all Worrying too much about different things: 0 = Not at all Trouble relaxin = Not at all Being so restless that it is hard to sit still: 0 = Not at all Becoming easily annoyed or irritable: 0 = Not at all Feeling afraid as if something awful might happen: 0 = Not at all Total ANGELITO-7 score (0-4 normal; 5-9 mild; 10-14 moderate; 15-21 severe): 0 Source: Developed by Drs. Jaime Mohr, Tamar Ibanez, Casper Mo and colleagues, with an educational juana from [employer]. Review of Systems Const Denies body aches, Denies chills, Denies fever(s), Denies headache(s) and Denies poor appetite Eyes Reports no additional complaints ENT Denies dysphagia, Denies dizziness, Denies headache(s) and Denies odynophagia Card Denies chest pain, Reports chest pain with activity, Denies syncope, Denies edema, Denies irregular heart rhythm, Denies lightheadedness, Denies dyspnea and Reports dyspnea on exertion Resp Denies cough, Denies dyspnea and Reports dyspnea on exertion GI Reports abdominal pain (Lower), Denies constipation, Denies dysphagia, Reports diarrhea, Reports nausea, Denies odynophagia and Denies vomiting Reports no additional complaints Musc Reports no additional complaints and Denies abnormal gait Skin/Breast Details: Left breast pain Reports system reviewed and no additional complaints, except as documented Neuro Denies abnormal gait, Denies dizziness, Denies syncope and Denies headache(s) Psych Reports no additional complaints Physical exam (Primary Care) Vital Signs: Last Vital Signs Temp 98 F 06/03/24 09:40 Pulse 66 06/03/24 09:40 BP 112/60 06/03/24 09:40 Pulse Ox 98 06/03/24 09:40 Oxygen Delivery Method Room Air 06/03/24 09:40 BMI result Body Mass Index 18.9 Tobacco/Smoking Status: Tobacco use Status Tobacco use date assessed 06/03/24 06/03/24 09:48 Patient Tobacco Use Status Never used Tobacco 06/03/24 09:48 e-Cigarette/Vaping Use Never Used 06/03/24 09:48 PHQ-9: PHQ-9 Score PHQ-9: Total score 0 06/03/24 11:08 Depression Screening Interpretation: Negative Thrive Assessment: Date of Thrive Assessment Date Thrive assessed 06/03/24 06/03/24 09:48 Currently or been in a relationship where the following occur: No concerns reported Const General: cooperative, healthy appearing, comfortable and no acute distress Orientation/consciousness: patient oriented x3 HENMT Head: Yes normocephalic Ears: hearing grossly normal bilaterally General nose exam: Normal external nose present Eyes General: appearance normal, both eyes and all related structures Conjunctivae: conjunctivae normal Neck Neck: Yes full ROM and Yes no lymphadenopathy Resp Effort & Inspection: normal respiratory effort Auscultation: clear to auscultation bilaterally, no crackles, no rales, no rhonchi and no wheezes Cardio Rate: regular rate Rhythm: regular rhythm GI Palpation (GI): Soft to palpation, not firm, nontender, no guarding, not rigid and No Rebound tenderness present Skin General skin exam: no rashes or lesions noted Neuro General: patient oriented x3 Gait exam (Neuro): Normal gait present Extrem General: Yes normal to inspection, Yes full ROM and No edema Psych Affect: normal affect Attitude: cooperative Insight: Good insight present (Psych) Judgement: Good judgement present (Psych) Coding Level of Care Code New Pt Level 4 (28832) Diagnoses Other chest pain R07.89 Chest pain type: other chest pain Shortness of breath R06.02 Abdominal pain R10.9 Breast pain, left N64.4 Assessment & Plan Assessment & Plan (1) Chest pain: Code(s): R07.9 - Chest pain, unspecified Category: Medical Qualifiers: Chest pain type: other chest pain Qualified Code(s): R07.89 - Other chest pain Plan: Patient reporting chest pain with exertion primarily with cardio while at the gym and while running around. Recommended cardiac stress test for further evaluation. She did recently have a workup at urgent care which was negative. (2) Shortness of breath: Code(s): R06.02 - Shortness of breath Category: Medical Plan: Patient complaining of occasional shortness of breath primarily with exercising and chest tightness. She does have a history of asthma as a child but states she has not had any exacerbations in several years. Ordered for pulmonary function testing for further evaluation. (3) Abdominal pain: Code(s): R10.9 - Unspecified abdominal pain Category: Medical Plan: Patient complaining of lower abdominal pain and cramping after meals typically followed by diarrhea. On exam today no tenderness to palpation over entirety of abdomen. Given area of reported symptoms likely related to irritable bowel. Patient was given informational packet on low FODMAP diet which is advised as well as a food journal to tract symptoms and problem foods. Also recommending adding fiber supplement either Metamucil or Benefiber [id number] to help bulk the stools. Can consider abdominal ultrasound or upper GI series for further evaluation. (4) Breast pain, left: Code(s): N64.4 - Mastodynia Category: Medical Plan: Patient complaining of left breast pain for several years. Has never had this evaluated but does have a family history of breast cancer. Ordered for breast ultrasound and mammogram for further evaluation. Plan This note was constructed using voice recognition software. While every effort has been made to ensure accuracy and communications attendant, still areas may have been included sometimes these areas may affect the content or meeting of the given symptoms. Total time spent caring for the patient today was 30 minutes. This includes time spent before the visit reviewing the chart, time spent during the visit, and time spent after the visit and documentation. Orders: Orders PFT pulmonary function test Today R06.02 - Shortness of breath Comprehensive Met. Panel Today Z00.00 - Encounter for general adult medical examination without abnormal findings Complete Blood Count Auto Diff Today Z00.00 - Encounter for general adult medical examination without abnormal findings Vitamin B12 and Folate Today Z00.00 - Encounter for general adult medical examination without abnormal findings Vitamin D 25-OH Total Today Z00.00 - Encounter for general adult medical examination without abnormal findings Free T4 (Free Thyroxine) Today Z00.00 - Encounter for general adult medical examination without abnormal findings CA stress test Today R07.89 - Other chest pain Transglutaminase Ab IgG Today R10.9 - Unspecified abdominal pain TSH reflex Free T4 Today Z00.00 - Encounter for general adult medical examination without abnormal findings US breast LT complete Today N64.4 - Mastodynia MM tomosynthesis diagnostic LT Today N64.4 - Mastodynia Referrals SUPERVISOR GRADING Referral Z12.4 - Encounter for screening for malignant neoplasm of cervix
[2024-06-03 09:40] VITALS: BP 112/60; PULSE 66; TEMP 36.6; O2SAT 98; BMI 18.9
== END 2024-06-03 10:19 | disposition home or self-care (01) ==
DX: R07.89 Other chest pain (principal); R06.02 Shortness of breath; R10.9 Unspecified abdominal pain; N64.4 Mastodynia

== ENCOUNTER → 2024-06-03 09:32 | Outpatient (BNVA) | payer SELFPAY | DX: R07.89 Other chest pain (principal); R06.02 Shortness of breath; R10.9 Unspecified abdominal pain; N64.4 Mastodynia | CPT/HCPCS: 99202 ==

== ENCOUNTER 2024-06-17 12:01 | Outpatient (REF) | payer OTHER, SELFPAY ==
[2024-06-17 12:20] LABS: MANUAL DIFF FLAG NO
[2024-06-17 12:35] LABS: Basophils Percent Auto 0.8 % (0-2); Eosinophils Absolute Auto 0.1 X10*3/uL (0.0-0.4); Eosinophils Percent Auto 1.2 % (0-4); Hematocrit 38.8 % (37.0-47.0); Hemoglobin 12.3 g/dl (12.0-16.0); Imm Gran Abs Auto 0.01 X10*3/uL (0.00-0.03); Imm Gran Pct Auto 0.2 % (0.0-0.4); Lymphocytes Absolute Auto 1.8 X10*3/uL (1.2-4.9); Lymphocytes Percent Auto 34.5 % (20-40); Mean Corpuscular HGB Conc 31.7 g/dl (31.0-35.0); Mean Corpuscular Hemoglobin 25.2 pg (27.0-33.0); Mean Corpuscular Volume 79.5 fL (80.0-98.0); Mean Platelet Volume 10.7 fL (9.4-12.3); Monocytes Absolute Auto 0.4 X10*3/uL (0.1-1.2); Monocytes Percent Auto 7.1 % (2-11); Neutrophils Absolute Auto 2.9 x10*3/uL (2.0-8.3); Neutrophils Percent Auto 56.2 % (45-73); Platelet Count 228 X10*3/uL (160-400); Red Blood Count 4.88 X10*6/uL (4.20-5.50); Red Cell Distribution Width 14.4 % (11.0-16.0); White Blood Count 5.1 X10*3/uL (4.8-10.8)
[2024-06-17 13:15] LABS: Alanine Aminotransferase 12 U/L (0-31); Albumin Level 4.5 g/dL (3.5-5.0); Alkaline Phosphatase 61 U/L (39-117); Anion Gap 11 (12-20); Aspartate Amino Transferase 26 U/L (5-31); Bilirubin Total 0.3 mg/dL (0.0-1.0); Blood Urea Nitrogen 17 mg/dL (9-16); Calcium 9.3 mg/dL (8.4-10.2); Carbon Dioxide 25 mmol/L (22-29); Chloride 107 mmol/L (96-108); Estimated Glomerular Filt Rate > 60; Glucose Random 90 mg/dL (60-115); Potassium 4.1 mmol/L (3.3-5.1); Sodium 139 mmol/L (135-145); Total Protein 7.8 g/dL (6.5-8.0)
[2024-06-17 13:31] LABS: Free T4 (Free Thyroxine) 1.02 ng/dL (0.71-1.85); TSH reflex Free T4 0.95 uIU/mL (0.32-4.0); Vitamin D 25-OH Total 12.1 ng/mL (>30)
[2024-06-17 13:42] LABS: Folate 12.7 ng/mL (> or = 4.0); Vitamin B12 388 pg/mL (200-900)
--- OUTSIDE RECORDS SUMMARY | 2024-06-17 14:11 | XMS_ITS | Encounter Summary ---
Author Organization [facility] Address [address] [place] [phone] Phone Care Team Providers Care Web Systems Developer Name Role Phone Lazara Valdez MD Primary Care Provider Encounter Details Date Type Department Care Team (Late st Contact Info) Description 12/31/2009 Documentation [facility] Family Medicine [address] [place], [place] [id number] Family Medicine, Physician [address] [place], [place] [id number] Social History Tobacco Use Types Packs/Day Years [...] on filedocumented in this encounter Care Teams Web Systems Developer Relationship Specialty Start Date End Date Lazara Valdze MD [address] [place] [id number] PCP - General 11/25/16 03/27/23 documented as of this encounter
--- OUTSIDE RECORDS SUMMARY | 2024-06-17 14:11 | XMS_ITS | Clinical Summary ---
Author Organization [facility] Address [address] [place] [address] Phone Care Team Providers Care Ribbon Cleaner Name Role Phone Unavailable Primary Care Provider [...] support coping. PLAN: 1. Follow up with [facility] two weeks 2. Patient goal is to [...] support coping. PLAN: 1. Follow up with [facility] two weeks 2. Patient goal is to [...] by Dr. Musa, Neurologist, in October 2018. [place] to have migraine without aura - given [...] Type Department Care Team Description 04/15/2024 Telephone [facility] [address] [place] [address] Lazara Valdez MD medical records [...] Completed 01/21/2021, 01/08/2020 Procedures * Due to [place] state law, this organization might not be sharing sensitive test results. Procedure Name Priority Date/Time Associated Diagnosis Comments CHLAMYDIA AND GONORRHEA, AMPLIFIED Routine 03/01/2022 11:20 AM EST Encounter for screening examination for chlamydial infection from Last 3 Months or Most Recently Relevant to Health Maintenance Results * Due to [place] state law, this organization might not be sharing sensitive test results. * Chlamydia and Gonorrhoea, Amplified (03/01/2022 11:20 AM EST) Chlamydia Trachomatis, DNA Probe NEGATIVE (NEG) [facility] Comment: No Chlamydia Trachomatis RNA detected in this patient's sample ? (REFERENCE RANGE/NORMAL VALUE: NOT DETECTED) ? Note: This test uses chemical cell changer- mediated amplification method to detect rRNA from C. Trachomatis URINE GC AMP PROBE NEGATIVE (NEG) [facility] Comment: No Neisseria Gonorrhoeae RNA detected in this patient's sample ? (REFERENCE RANGE/NORMAL VALUE: NOT DETECTED) ? NOTE: This test uses chemical cell changer-mediated amplification method to detect rRNA from N.Gonorrhoeae. [...] without risk of sexual abuse. Consult the [facility] if needed. Contact phone number . Therapeutic failure or success cannot be determined with the Aptima Combo2 assay since nucleic acid may persist following appropriate antimicrobial therapy. The Centers for Disease Control and Prevention (CDC) recommends confirmatory retesting using culture or a different nucleic acid amplification test when positive results occur, if indicated. Testing performed or reported by [facility], a Service of [facility], [facility] [place] [address] Jaime Jones MD, Frozen Meat Cutter [facility]# [id number] Urine (Urine) 03/01/2022 11: 20 AM EST 03/01/2022 7:50 PM EST us Lazara Valdez MD LAB MICROBIOLOGY - GENERAL ORDERABLES Final Result [facility] from Last 3 Months or Most Recently Relevant to Health Maintenance
--- OUTSIDE RECORDS SUMMARY | 2024-06-17 14:11 | XMS_ITS | Encounter Summary ---
Author Organization [facility] Address [address] [place] [address] Phone Care Team Providers Care Extruder Operator Multiple Name Role Phone Lazara Valdez MD Primary Care Provider Encounter Details Date Type Department Care Team (Late st Contact Info) Description 01/05/2010 Documentation [facility] Family Medicine [address] [place] [address] Family Medicine, Physician [address] [place], [place] 374671 Social History Tobacco Use Types Packs/Day Years [...] on filedocumented in this encounter Care Teams Extruder Operator Multiple Relationship Specialty Start Date End Date Lazara Valdez MD [address] [place] [address] PCP - General 11/25/16 03/27/23 documented as of this encounter
--- OUTSIDE RECORDS SUMMARY | 2024-06-17 14:11 | XMS_ITS | Encounter Summary ---
Author Organization [facility] Address [address] [place] [address] Phone Care Team Providers Care Video Intern Name Role Phone Lazara Valdez MD Primary Care Provider Encounter Details Date Type Department Care Team (Late st Contact Info) Description 12/18/2009 Documentation [facility] [place] [facility] [address] [place] [address] Family Medicine, Physician [address] [place], [place] [phone] Social History Tobacco Use Types Packs/Day Years [...] on filedocumented in this encounter Care Teams Video Intern Relationship Specialty Start Date End Date Lazara Valdez MD [address] [place] [address] PCP - General 11/25/16 03/27/23 documented as of this encounter
--- OUTSIDE RECORDS SUMMARY | 2024-06-17 14:11 | XMS_ITS | Encounter Summary ---
Author Organization [facility] Address [address] [place] [address] Phone Care Team Providers Care Retail Loss Prevention Officer Name Role Phone Lazara Valdez MD Primary Care Provider Encounter Details Date Type Department Care Team (Late st Contact Info) Description 01/06/2016 Documentation [facility] [place] Family Medicine [address] [place], [place] [phone] Family Medicine, Physician [address] [place], [place] 868181 Social History Tobacco Use Types Packs/Day Years [...] on filedocumented in this encounter Care Teams Retail Loss Prevention Officer Relationship Specialty Start Date End Date Lazara Valdez MD [address] [place] [address] PCP - General 11/25/16 03/27/23 documented as of this encounter
--- OUTSIDE RECORDS SUMMARY | 2024-06-17 14:11 | XMS_ITS | Encounter Summary ---
Author Organization [facility] Address [address] [place] [address] Phone Care Team Providers Care Shuttle Inspector Name Role Phone Lazara Valdez MD Primary Care Provider [phone] Encounter Details Date Type Department Care Team (Late st Contact Info) Description 12/01/2016 Conversion Encounter [facility] [address] [place] [address] Social History Tobacco Use Types Packs/Day Years [...] on filedocumented in this encounter Care Teams Shuttle Inspector Relationship Specialty Start Date End Date Lazara Valdez MD [address] [place] [address] PCP - General 11/25/16 03/27/23 documented as of this encounter
--- OUTSIDE RECORDS SUMMARY | 2024-06-17 14:11 | XMS_ITS | Encounter Summary ---
Author Organization [facility] Address [address] [place] [address] Phone Care Team Providers Care Timber Management Assistant Name Role Phone Lazara Valdez MD Primary Care Provider Encounter Details Date Type Department Care Team (Late st Contact Info) Description 03/06/2010 Documentation [facility] Family Medicine [address] [place], [place] [phone] Family Medicine, Physician [address] [place], [place] 348851 Social History Tobacco Use Types Packs/Day Years [...] on filedocumented in this encounter Care Teams Timber Management Assistant Relationship Specialty Start Date End Date Lazara Valdez MD [address] [place] [address] PCP - General 11/25/16 03/27/23 documented as of this encounter
--- OUTSIDE RECORDS SUMMARY | 2024-06-17 14:11 | XMS_ITS | Encounter Summary ---
Author Organization [facility] Address [address] [place] [address] Phone Care Team Providers Care District Court Administrator Name Role Phone Lazara Valdez MD Primary Care Provider Encounter Details Date Type Department Care Team (Late st Contact Info) Description 12/28/2013 Documentation [facility] [place] [address] [place], [place] [phone] Family Medicine, Physician [address] [place], [place] 832761 Social History Tobacco Use Types Packs/Day Years [...] on filedocumented in this encounter Care Teams District Court Administrator Relationship Specialty Start Date End Date Lazara Valdez MD [address] [place] [address] PCP - General 11/25/16 03/27/23 documented as of this encounter
[2024-06-18 21:14] LABS: Transglutaminase Ab IgG <1.0 U/mL
== END 2024-06-17 12:02 | disposition home or self-care (01) ==
LOC: HO.LAB 12:01
DX: Z00.00 Encounter for general adult medical examination without abnormal findings (principal); R10.9 Unspecified abdominal pain
CPT/HCPCS: 36415; 80053; 82306; 82607; 82746; 84439; 84443; 85025; 86364

== ENCOUNTER 2024-07-08 08:25 | Outpatient (REF) | payer OTHER, SELFPAY ==
--- NOTE | ~2024-07-08 | US_ITS ---
EXAMINATION: US DIAGNOSTIC ULTRASOUND BREAST, LEFT CLINICAL INFORMATION: 24-year-old female with left breast pain for a few months, no history of trauma... COMPARISON: Comparison is made with relevant prior imaging. TECHNIQUE: Ultrasound of the breast is performed with real-time beard scale imaging and color Doppler. FINDINGS: Targeted color Doppler ultrasound scanning in the lower outer quadrant area of patient's pain demonstrates normal fibronodular breast tissue. There is no focal suspicious finding. There is no solid mass, architectural abnormality, duct ectasia, or edema . Results are discussed with the patient at time of visit. US/US breast LT limited IMPRESSION: No sonographic abnormality to correlate with the patient's left lower outer quadrant breast pain. Recommend clinical evaluation and follow-up ASSESSMENT: BI-RADS 1: Negative RECOMMENDATION: Recommend clinical evaluation and follow-up. This patient's information was entered into a reminder system with a target due date for their next mammogram. Electronically signed by: Honey Ramirez DO 07/08/2024 09:07 AM [place]
== END 2024-07-08 08:26 | disposition home or self-care (01) ==
LOC: HO.MAMMO 08:25
DX: N64.4 Mastodynia (principal)
CPT/HCPCS: 76642

== ENCOUNTER → 2024-07-08 08:30 | Outpatient (BNV) | payer OTHER, SELFPAY | PROVIDERS: Visit Provider Internal Medicine | DX: N64.4 Mastodynia (principal) | CPT/HCPCS: 76642 ==

== ENCOUNTER 2024-07-19 14:55 | Outpatient (REF) | payer OTHER, SELFPAY ==
--- NOTE | 2024-07-19 15:03 | PFT_ITS ---
Flows: FEV1: 93 % of predicted at 2.88 L FVC: 87 % of predicted at 3.07 L FEV1/FVC: 94 % Bronchodilator response: Absent Volumes: Total lung capacity: 108 % of predicted at 4.99 L Residual volume: 191 % of predicted at 1.92 L Slow vital capacity: 86 % of predicted at 3.07 L Expiratory reserve volume: 77 % of predicted at 0.88 L Diffusion capacity: Normal Impression: No obstructive or restrictive ventilatory defect. No bronchodilator response. Increased residual volume suggests air trapping. MTDD
[2024-07-19 15:42] VITALS: PULSE 56; O2SAT 100
--- OUTSIDE RECORDS SUMMARY | 2024-07-19 16:23 | XMS_ITS | Clinical Summary ---
Author Organization [facility] Address [address] [place] [address] Phone Care Team Providers Care Furnace Door Tender Name Role Phone Unavailable Primary Care Provider [...] support coping. PLAN: 1. Follow up with [facility] two weeks 2. Patient goal is to [...] support coping. PLAN: 1. Follow up with [facility] two weeks 2. Patient goal is to [...] by Dr. Musa, Neurologist, in October 2018. [place] to have migraine without aura - given Sumatriptan 50 mg, 1 tab as needed daily and instructed to avoid possible triggers (cheese, wine, chocolate, MSG), eat and sleep regularly, avoid daily pain meds, limit screen time, light exercise daily. 2019 - saw a chiropractor for a while which helped, now is doing okay, just lives with it Immunizations Immunization Administration Dates Next Due DTaP [...] Last Done Comments Influenza Vaccines (#1) 2023 03/01/20 22, 01/08/2020, 01/03/2019, Additional history exists COVID-19 Vaccine ( - season) 2023 09/15/2020, 08/18/2020 DTaP,Tdap,and Td Vaccines [...] Completed 01/21/2021, 01/08/2020 Procedures * Due to [place] [employer] law, this organization might not be sharing sensitive test results. Procedure Name Priority Date/Time Associated Diagnosis Comments CHLAMYDIA AND GONORRHEA, AMPLIFIED Routine 03/01/2022 11:20 AM EST Encounter for screening examination for chlamydial infection from Last 3 Months or Most Recently Relevant to Health Maintenance Results * Due to [place] [employer] law, this organization might not be sharing sensitive test results. * Chlamydia and Gonorrhoea, Amplified (03/01/2022 11:20 AM EST) Chlamydia Trachomatis, DNA Probe NEGATIVE (NEG) [facility] Comment: No Chlamydia Trachomatis RNA detected in this patient's sample ? (REFERENCE RANGE/NORMAL VALUE: NOT DETECTED) ? Note: This test uses supplemental nurse- mediated amplification method to detect rRNA from C. Trachomatis URINE GC AMP PROBE NEGATIVE (NEG) [facility] Comment: No Neisseria Gonorrhoeae RNA detected in this patient's sample ? (REFERENCE RANGE/NORMAL VALUE: NOT DETECTED) ? NOTE: This test uses supplemental nurse-mediated amplification method to detect rRNA from N.Gonorrhoeae. [...] risk of sexual abuse. Consult the [facility] if needed. Contact phone number . Therapeutic failure or success cannot be determined with the Aptima Combo2 assay since nucleic acid may persist following appropriate antimicrobial therapy. The Centers for Disease Control and Prevention (CDC) recommends confirmatory retesting using culture or a different nucleic acid amplification test when positive results occur, if indicated. Testing performed or reported by [facility], a Service of [facility], [facility] [address], [place] [address] Jaime Jones MD, Stretcher Drier Operator [facility]# [id number] Urine (Urine) 03/01/2022 11: 20 AM EST 03/01/2022 7:50 PM EST us Lazara Valdez MD LAB MICROBIOLOGY - GENERAL ORDERABLES Final Result [facility] from Last 3 Months or Most Recently Relevant to Health Maintenance
--- OUTSIDE RECORDS SUMMARY | 2024-07-19 16:23 | XMS_ITS | Encounter Summary ---
Author Organization [facility] Address [address] [place] [address] Phone Care Team Providers Care Hairspring Truer Name Role Phone Lazara Valdez MD Primary Care Provider [phone] Encounter Details Date Type Department Care Team (Late st Contact Info) Description 12/28/2013 Documentation [facility] [place] [facility] [address] [place], [place] [phone] Family Medicine, Physician [address] [place], [place] 177201 Social History Tobacco Use Types Packs/Day Years [...] on filedocumented in this encounter Care Teams Hairspring Truer Relationship Specialty Start Date End Date Lazara Valdez MD [address] [place] [address] 37270 PCP - General 11/25/16 03/27/23 documented as of this encounter
--- OUTSIDE RECORDS SUMMARY | 2024-07-19 16:23 | XMS_ITS | Encounter Summary ---
Author Organization [facility] Address [address] [place] [address] Phone Care Team Providers Care Material Stockkeeper Yard Name Role Phone Lazara Valdez MD Primary Care Provider Encounter Details Date Type Department Care Team (Late st Contact Info) Description 03/06/2010 Documentation [facility] [place] [address] [place] [address] Family Medicine, Physician [address] [place], [place] 931541 Social History Tobacco Use Types Packs/Day Years [...] on filedocumented in this encounter Care Teams Material Stockkeeper Yard Relationship Specialty Start Date End Date Lazara Valdez MD [address] [place] [address] PCP - General 11/25/16 03/27/23 documented as of this encounter
--- OUTSIDE RECORDS SUMMARY | 2024-07-19 16:23 | XMS_ITS | Encounter Summary ---
Author Organization [facility] Address [address] [place] [address] Phone Care Team Providers Care General Production Worker Name Role Phone Lazara Valdez MD Primary Care Provider Encounter Details Date Type Department Care Team (Late st Contact Info) Description 12/31/2009 Documentation [facility] [place] [address] [place], [place] [phone] Family Medicine, Physician [address] [place], [place] 951281 Social History Tobacco Use Types Packs/Day Years [...] on filedocumented in this encounter Care Teams General Production Worker Relationship Specialty Start Date End Date Lazara Valdez MD [address] [place] [address] PCP - General 11/25/16 03/27/23 documented as of this encounter
--- OUTSIDE RECORDS SUMMARY | 2024-07-19 16:23 | XMS_ITS | Encounter Summary ---
Author Organization [facility] Address [address] [place] [address] Phone Care Team Providers Care Fieldwork Coordinator Name Role Phone Lazara Valdez MD Primary Care Provider [phone] Encounter Details Date Type Department Care Team (Late st Contact Info) Description 12/01/2016 Conversion Encounter [facility] [address] [place] [address] Social History Tobacco Use Types Packs/Day Years [...] on filedocumented in this encounter Care Teams Fieldwork Coordinator Relationship Specialty Start Date End Date Lazara Valdez MD [address] [place] [address] PCP - General 11/25/16 03/27/23 documented as of this encounter
--- OUTSIDE RECORDS SUMMARY | 2024-07-19 16:23 | XMS_ITS | Encounter Summary ---
Author Organization [facility] Address [address] [place] [address] Phone Care Team Providers Care Concrete Technician Name Role Phone Lazara Valdez MD Primary Care Provider Encounter Details Date Type Department Care Team (Late st Contact Info) Description 01/06/2016 Documentation [facility] [place] [address] [place], [place] [phone] Family Medicine, Physician [address] [place], [place] 343181 Social History Tobacco Use Types Packs/Day Years [...] on filedocumented in this encounter Care Teams Concrete Technician Relationship Specialty Start Date End Date Lazara Valdez MD [address] [place] [address] PCP - General 11/25/16 03/27/23 documented as of this encounter
--- OUTSIDE RECORDS SUMMARY | 2024-07-19 16:23 | XMS_ITS | Encounter Summary ---
Author Organization [facility] Address [address] [place] [address] Phone Care Team Providers Care Alemite Operator Name Role Phone Lazara Valdez MD Primary Care Provider Encounter Details Date Type Department Care Team (Late st Contact Info) Description 01/05/2010 Documentation [facility] Family [facility] [address] [place] [address] Family Medicine, Physician [address] [place], [place] 582051 Social History Tobacco Use Types Packs/Day Years [...] on filedocumented in this encounter Care Teams Alemite Operator Relationship Specialty Start Date End Date Lazara Valdez MD [address] [place] [address] PCP - General 11/25/16 03/27/23 documented as of this encounter
--- OUTSIDE RECORDS SUMMARY | 2024-07-19 16:23 | XMS_ITS | Encounter Summary ---
Author Organization [facility] Address [address] [place] [address] Phone Care Team Providers Care Cap Jewel Plate Assembler Name Role Phone Lazara Valdez MD Primary Care Provider Encounter Details Date Type Department Care Team (Late st Contact Info) Description 12/18/2009 Documentation [facility] [place] [address] [place] [address] Family Medicine, Physician [address] [place], [place] 827531 Social History Tobacco Use Types Packs/Day Years [...] on filedocumented in this encounter Care Teams Cap Jewel Plate Assembler Relationship Specialty Start Date End Date Lazara Valdez MD [address] [place] [address] PCP - General 11/25/16 03/27/23 documented as of this encounter
== END 2024-07-19 14:56 | disposition home or self-care (01) ==
LOC: HO.RESP 14:55
DX: R06.02 Shortness of breath (principal)
CPT/HCPCS: 94010; 94640; 94727; 94729

== ENCOUNTER → 2024-07-19 15:03 | Outpatient (BNV) | payer OTHER, SELFPAY | PROVIDERS: Visit Provider Internal Medicine Pulmonary Disease | DX: R06.02 Shortness of breath (principal) | CPT/HCPCS: 94060; 94727; 94729 ==

== ENCOUNTER → 2024-07-22 08:02 | Outpatient (REF) | payer OTHER, SELFPAY ==
--- NOTE | 2024-07-22 08:02 | CA_ITS ---
Acquisition Time: 2024-07-22 08:08:57 Total Exercise Time: 00:09:40 Test Indications: Dyspnea CP Medications: NONE Protocol: POP Max HR: 179 BPM 90% of Pred: 198 BPM Max BP: 136/72 mmHG Max Work Load: 11.2 METS Exercise Stress Test with exercise 9 mins 40 secs of Pop Protocol, achieving 90% MPHR, with reports of 3/10 sharp mid chest pain at baseline that went up to 5 with exercise with mild SOB, without any arrythmias, with normotenisive response to exercise. Without EKG changes meeting criteria for ischemia. In recovery, breathing returned to baseline and chest pain back to baseline. Would recommend stress echo to further evaluate the CP. Test reviewed with Dr. Riley. Referred By: Abigail Flores Electronically Signed By: Chuy Schneider
--- OUTSIDE RECORDS SUMMARY | 2024-07-22 08:11 | XMS_ITS | Encounter Summary ---
Author Organization [facility] Address [address] [place] [address] Phone Care Team Providers Care Esthetician/Owner Name Role Phone Lazara Valdez MD Primary Care Provider Encounter Details Date Type Department Care Team (Late st Contact Info) Description 03/06/2010 Documentation [facility] [place] [address] [place], [place] [phone] Family Medicine, Physician [address] [place], [place] 439811 Social History Tobacco Use Types Packs/Day Years [...] on filedocumented in this encounter Care Teams Esthetician/Owner Relationship Specialty Start Date End Date Lazara Valdez MD [address] [place] [address] PCP - General 11/25/16 03/27/23 documented as of this encounter
--- OUTSIDE RECORDS SUMMARY | 2024-07-22 08:11 | XMS_ITS | Encounter Summary ---
Author Organization [facility] Address [address] [place] [address] Phone Care Team Providers Care Glass Unloading Equipment Tender Name Role Phone Lazara Valdez MD Primary Care Provider Encounter Details Date Type Department Care Team (Late st Contact Info) Description 12/31/2009 Documentation [facility] Family Medicine [address] [place], [place] [phone] Family Medicine, Physician [address] [place], [place] 825841 Social History Tobacco Use Types Packs/Day Years [...] on filedocumented in this encounter Care Teams Glass Unloading Equipment Tender Relationship Specialty Start Date End Date Lazara Valdez MD [address] [place] [address] PCP - General 11/25/16 03/27/23 documented as of this encounter
--- OUTSIDE RECORDS SUMMARY | 2024-07-22 08:11 | XMS_ITS | Encounter Summary ---
Author Organization [facility] Address [address] [place] [address] Phone Care Team Providers Care Content Designer Name Role Phone Lazara Valdez MD Primary Care Provider Encounter Details Date Type Department Care Team (Late st Contact Info) Description 01/06/2016 Documentation [facility] [place] Family Medicine [address] [place], [place] 1959[address] Family Medicine, Physician [address] [place], [place] 550551 Social History Tobacco Use Types Packs/Day Years [...] on filedocumented in this encounter Care Teams Content Designer Relationship Specialty Start Date End Date Lazara Valdez MD [address] [place] [address] PCP - General 11/25/16 03/27/23 documented as of this encounter
--- OUTSIDE RECORDS SUMMARY | 2024-07-22 08:11 | XMS_ITS | Clinical Summary ---
Author Organization [facility] Address [address] [place] [address] Phone Care Team Providers Care Clinical Cytogeneticist Name Role Phone Unavailable Primary Care Provider [...] by Dr. Musa, Neurologist, in October 2018. [place] to have migraine without aura - given [...] Completed 01/21/2021, 01/08/2020 Procedures * Due to [place] SocialMedia[employer] law, this organization might not be sharing sensitive test results. Procedure Name Priority Date/Time Associated Diagnosis Comments CHLAMYDIA AND GONORRHEA, AMPLIFIED Routine 03/01/2022 11:20 AM EST Encounter for screening examination for chlamydial infection from Last 3 Months or Most Recently Relevant to Health Maintenance Results * Due to [place] SocialMedia[employer] law, this organization might not be sharing sensitive test results. * Chlamydia and Gonorrhoea, Amplified (03/01/2022 11:20 AM EST) Chlamydia Trachomatis, DNA Probe NEGATIVE (NEG) [facility] Comment: No Chlamydia Trachomatis RNA detected in this patient's sample ? (REFERENCE RANGE/NORMAL VALUE: NOT DETECTED) ? Note: This test uses resident care aide- mediated amplification method to detect rRNA from C. Trachomatis URINE GC AMP PROBE NEGATIVE (NEG) [facility] Comment: No Neisseria Gonorrhoeae RNA detected in this patient's sample ? (REFERENCE RANGE/NORMAL VALUE: NOT DETECTED) ? NOTE: This test uses resident care aide-mediated amplification method to detect rRNA from N.Gonorrhoeae. [...] without risk of sexual abuse. Consult the [facility] if needed. Contact phone number . Therapeutic failure or success cannot be determined with the Aptima Combo2 assay since nucleic acid may persist following appropriate antimicrobial therapy. The Centers for Disease Control and Prevention (CDC) recommends confirmatory retesting using culture or a different nucleic acid amplification test when positive results occur, if indicated. Testing performed or reported by [facility], a Service of [facility], [facility] [address], [place] [address] Jaime Jones MD, Pathology Collector MARY# [id number] Urine (Urine) 03/01/2022 11: 20 AM EST 03/01/2022 7:50 PM EST us Lazara Valdez MD LAB MICROBIOLOGY - GENERAL ORDERABLES Final Result [facility] from Last 3 Months or Most Recently Relevant to Health Maintenance
--- OUTSIDE RECORDS SUMMARY | 2024-07-22 08:11 | XMS_ITS | Encounter Summary ---
Author Organization [facility] Address [address] [place] [address] Phone Care Team Providers Care Manufacturing Leader Name Role Phone Lazara Valdez MD Primary Care Provider Encounter Details Date Type Department Care Team (Late st Contact Info) Description 01/05/2010 Documentation [facility] [place] [address] [place], [place] [phone] Family Medicine, Physician [address] [place], [place] [address]461 Social History Tobacco Use Types Packs/Day Years [...] on filedocumented in this encounter Care Teams Manufacturing Leader Relationship Specialty Start Date End Date Lazara Valdez MD [address] [place] [address] PCP - General 11/25/16 03/27/23 documented as of this encounter
--- OUTSIDE RECORDS SUMMARY | 2024-07-22 08:11 | XMS_ITS | Encounter Summary ---
Author Organization [facility] Address [address] [place] [address] Phone Care Team Providers Care Area Plant Manager Name Role Phone Lazara Valdez MD Primary Care Provider Encounter Details Date Type Department Care Team (Late st Contact Info) Description 12/28/2013 Documentation [facility] [place] [address] [place], [place] [phone] Family Medicine, Physician [address] [place], [place] 339371 Social History Tobacco Use Types Packs/Day Years [...] on filedocumented in this encounter Care Teams Area Plant Manager Relationship Specialty Start Date End Date Lazara Valdez MD [address] [place] [address] PCP - General 11/25/16 03/27/23 documented as of this encounter
--- OUTSIDE RECORDS SUMMARY | 2024-07-22 08:11 | XMS_ITS | Encounter Summary ---
Author Organization [facility] Address [address] [place] [address] Phone Care Team Providers Care Records Analyst Name Role Phone Lazara Valdez MD Primary Care Provider [phone] Encounter Details Date Type Department Care Team (Late st Contact Info) Description 12/01/2016 Conversion Encounter [facility] [address] [place] [address] Social History Tobacco Use Types Packs/Day Years [...] on filedocumented in this encounter Care Teams Records Analyst Relationship Specialty Start Date End Date Lazara Valdez MD [address] [place] [address] PCP - General 11/25/16 03/27/23 documented as of this encounter
--- OUTSIDE RECORDS SUMMARY | 2024-07-22 08:11 | XMS_ITS | Encounter Summary ---
Author Organization [facility] Address [address] [place] [address] Phone Care Team Providers Care Parking Control Officer Name Role Phone Lazara Valdez MD Primary Care Provider Encounter Details Date Type Department Care Team (Late st Contact Info) Description 12/18/2009 Documentation [facility] [place] Family Medicine [address] [place] [address] Family Medicine, Physician [address] [place], [place] [phone] Social History Tobacco Use Types Packs/Day Years [...] on filedocumented in this encounter Care Teams Parking Control Officer Relationship Specialty Start Date End Date Lazara Valdez MD [address] [place] [address] PCP - General 11/25/16 03/27/23 documented as of this encounter
== END ==
LOC: HO.CARD 08:02
DX: R07.89 Other chest pain (principal)
CPT/HCPCS: 93017

== ENCOUNTER → 2024-07-22 08:02 | Outpatient (BNV) | payer OTHER, SELFPAY | DX: R07.9 Chest pain, unspecified (principal) | CPT/HCPCS: 93016; 93018 ==

== ENCOUNTER 2024-07-31 13:59 | Outpatient (AMB) | payer OTHER, SELFPAY ==
--- NOTE | 2024-07-31 14:05 | A.OFFVIS_ITS ---
Vital Signs 07/31/24 14:10 Height 5 ft 2 in Weight 105 lb BMI 19.2 BP 102/62 Intake Visit Reasons: New patient Annual Glass Blower: Glass Blower Present (Nora) Accompanied by: Self / Same As Patient Allergies No Known Allergies Allergy (Verified 07/31/24 14:10) Medication List - Last Reconciled 07/31/24 by Grecia Collins CNM cholecalciferol (vitamin D3) 25 mcg PO DAILY Is last menstrual period known: Yes Last menstrual period: 07/12/24 Post menopausal: No Patient : No HPI HPI New patient Annual: Details: Is here for her 1st crisis intervention specialist annual exam. She does not have any major concerns though she has 1 concern about her anatomy. She had a concern that 1 of her labia was a little bit longer than the other 1 and she had spoken with her optical goods drill operator about it Lazara Blanco, and she lost the referral to plastic surgeon that she had been given. She thinks it was less than year ago. She just met with her new primary care provider recently and did have some lab work done and had a thyroid level that was okay and also were EKG because she had been noticing some discomfort in her chest such that it made it hard to breathe when she was running and so she will be getting an echocardiogram as well. She said the EKG was normal she does have asthma and she did wonder if might be that. She is sexually active with her boyfriend and he uses condoms and they are consistent with it so she has no concerns but she is open to testing today but declines blood work for HIV hepatitis and syphilis. She is not at all interested in any hormonal method of control. [facility] Medical History Asthma Surgical History No pertinent past surgical history Family History (Updated 07/31/24 @ 14:08 by Nora Anna MA) Maternal Grandmother Breast cancer Social History Housing: Condominium Alcohol intake: never Patient Tobacco Use Status: Never used Tobacco e-Cigarette/Vaping Use: Never Used Second Hand Smoke Exposure: No service: No Current occupational status: employed Current occupation: Cosmatologist Cognitive needs: No Hearing needs: No Vision needs: No Female Reproductive History Menstrual Age of Menarche: 16 Duration of menses: 3-5 days Date of last menstrual period: 07/12/24 control method: none Total pregnancies: 0 History of abnormal pap smear: No History of STI: No Physical Exam Vital Signs: Last Vital Signs BP 102/62 07/31/24 14:10 BMI result Body Mass Index 19.2 Const General: healthy appearing, comfortable, no acute distress, well developed and alert Nutritional Appearance: average body habitus Orientation/consciousness: patient oriented x3 Limitations: no limitations HEENT Head: Yes normocephalic Neck Neck: Yes normal visual inspection Chest Chest palpation & inspection: normal inspection of the chest Breast/axilla inspection: normal inspection of the breasts and normal inspection of the axillae Breast/axilla palpation: normal palpation of the breasts and normal palpation of the axillae Resp Effort & Inspection: normal respiratory effort GI Inspection: Yes normal to inspection, No Abdominal wall edema and No distended Palpation (GI): Soft to palpation and nontender Other: External exam within normal limits labia to my eyes appear fairly symmetric in fact I could not tell which 1 was the 1 of more concern for her. Vagina is pink and moist healthy appearing mucosa with very normal appearing mucousy discharge cervix nulliparous pink smooth cervix not tightly closed, some ectropion. Cervix is long close thick mobile nontender uterus midposition mobile nontender bladder full fair tone with Kegel adnexa nontender not enlarged, General: Yes bladder normal to palpation External Female Exam: normal external appearance and normal appearance of the urethra Speculum Exam - Vagina: normal appearance of the vagina, normal palpation and normal vaginal discharge Speculum Exam - Cervix: normal appearance of the cervix, normal palpation and nontender Bimanual exam- vagina & uterus: normal bimanual exam, normal palpation, uterine size normal, bladder normal to palpation, consistency normal, normal palpation, uterine mobility normal, uterine shape normal, No Cervical tenderness present, non-tender and no cervical motion tenderness Bimanual Exam- Adnexa, other: normal adnexae, no masses, normal and No adnexal tenderness Neuro General: patient oriented x3 Assessment & Plan Assessment & Plan (1) Well woman exam with routine gynecological exam: Code(s): Z01.419 - Encounter for gynecological examination (general) (routine) without abnormal findings Category: Medical (2) Cervical cancer screening: Code(s): Z12.4 - Encounter for screening for malignant neoplasm of cervix Category: Medical (3) Encounter for screening examination for sexually transmitted disease: Code(s): Z11.3 - Encounter for screening for infections with a predominantly sexual mode of transmission Category: Medical (4) Uses condoms as primary control method: Code(s): Z78.9 - Other specified health status Category: Social Hx Plan -----Discussed in this visit the following: healthy balanced diet, regular and consistent exercise, getting recommended health screens, doing the best she can for her particular health concerns, kegel exercises, pap smear screening and followup recommendations, mammography screening and SBE, normal changes in cycles in her life stage--- . Discussed that there is a availability of other control methods but condoms are definitely a girls best friend and prevent a lot of other issues as well discussed the testing that we did today including gonorrhea chlamydia trichomoniasis as well as testing for bacterial vaginosis in yeast which are part of normal vaginal ronit discussed that condoms help protect her normal vaginal ronit. Discussed her menstrual cycle and any awareness she has where she is in her cycle in including ovulation. She uses an froilan and she was becoming aware of her physical changes in the cycle as well and I applauded her self learning in his process and how it will help her going forward in her life. Discussed availability for places to get in the [facility]. Discussed planning in general in that being as healthy as she can be and considering multivitamins with folic acid pre are all good though she has no plans at this point. For her anatomical concern I could not perceive a great difference but it is a concern for her. My suggestion would be to return to [facility] where she said she was given a referral she said less than a year ago and ask for another copy of it were least the name of the provider she was referred to. She is she said it was a plastic surgeon and I have no knowledge of plastic Surgeons in that field. I did caution that it is very delicate area and would need to be approached with a lot of knowledge.. Coding Level of Care Code New Pt Prev Care 18-39yr([id number] Diagnoses Well woman exam with routine gynecological exam Z01.419 Cervical cancer screening Z12.4 Encounter for screening examination for sexually transmitted disease Z11.3 Uses condoms as primary control method Z78.9
[2024-07-31 14:10] VITALS: BP 102/62; BMI 19.2
--- OUTSIDE RECORDS SUMMARY | 2024-07-31 16:46 | XMS_ITS | Encounter Summary ---
Author Organization [facility] Address [address] [place] [address] Phone Care Team Providers Care Dehairing Machine Tender Name Role Phone Lazara Valdez MD Primary Care Provider [phone] Encounter Details Date Type Department Care Team (Late st Contact Info) Description 12/28/2013 Documentation [facility] [place] [address] [place], [place] [phone] Family Medicine, Physician [address] [place], [place] [address]401 Social History Tobacco Use Types Packs/Day Years [...] on filedocumented in this encounter Care Teams Dehairing Machine Tender Relationship Specialty Start Date End Date Lazara Valdez MD [address] [place] [address] PCP - General 11/25/16 03/27/23 documented as of this encounter
--- OUTSIDE RECORDS SUMMARY | 2024-07-31 16:46 | XMS_ITS | Encounter Summary ---
Author Organization [facility] Address [address] [place] [address] Phone Care Team Providers Care Powder Compounder Name Role Phone Lazara Valdez MD Primary Care Provider [phone] Encounter Details Date Type Department Care Team (Late st Contact Info) Description 12/31/2009 Documentation [facility] [place] [address] [place], [place] [phone] Family Medicine, Physician [address] [place], [place] [address]99421 Social History Tobacco Use Types Packs/Day Years [...] on filedocumented in this encounter Care Teams Powder Compounder Relationship Specialty Start Date End Date Lazara Valdez MD [address] [place] [address] PCP - General 11/25/16 03/27/23 documented as of this encounter
--- OUTSIDE RECORDS SUMMARY | 2024-07-31 16:46 | XMS_ITS | Encounter Summary ---
Author Organization [facility] Address [address] [place] [address] Phone Care Team Providers Care Gluten Settling Tender Name Role Phone Lazara Valdez MD Primary Care Provider Encounter Details Date Type Department Care Team (Late st Contact Info) Description 12/18/2009 Documentation [facility] [place] Family Medicine [address] [place] [address] Family Medicine, Physician [address] [place], [place] 923671 Social History Tobacco Use Types Packs/Day Years [...] on filedocumented in this encounter Care Teams Gluten Settling Tender Relationship Specialty Start Date End Date Lazara Valdez MD [address] [place] [address] PCP - General 11/25/16 03/27/23 documented as of this encounter
--- OUTSIDE RECORDS SUMMARY | 2024-07-31 16:46 | XMS_ITS | Encounter Summary ---
Author Organization [facility] Address [address] [place] [address] Phone Care Team Providers Care Front Office Help Name Role Phone Lazara Valdez MD Primary Care Provider Encounter Details Date Type Department Care Team (Late st Contact Info) Description 03/06/2010 [place]ation [facility] [place] [address] [place], [place] [phone] Family Medicine, Physician [address] [place], [place] 4988[address] Social History Tobacco Use Types Packs/Day Years [...] on filedocumented in this encounter Care Teams Front Office Help Relationship Specialty Start Date End Date Lazara Valdez MD [address] [place] [address] PCP - General 11/25/16 03/27/23 documented as of this encounter
--- OUTSIDE RECORDS SUMMARY | 2024-07-31 16:46 | XMS_ITS | Encounter Summary ---
Author Organization [facility] Address [address] [place] [address] Phone Care Team Providers Care Gum Machine Filler Name Role Phone Lazara Valdez MD Primary Care Provider Encounter Details Date Type Department Care Team (Late st Contact Info) Description 01/05/2010 [place] [facility] [place] [address] [place], [place] [phone] Family Medicine, Physician [address] [place], [place] 218661 Social History Tobacco Use Types Packs/Day Years [...] on filedocumented in this encounter Care Teams Gum Machine Filler Relationship Specialty Start Date End Date Lazara Valdez MD [address] [place] [address] PCP - General 11/25/16 03/27/23 documented as of this encounter
--- OUTSIDE RECORDS SUMMARY | 2024-07-31 16:46 | XMS_ITS | Encounter Summary ---
Author Organization [facility] Address [address] [place] [address] Phone Care Team Providers Care Restaurant Shift Supervisor Name Role Phone Lazara Valdez MD Primary Care Provider Encounter Details Date Type Department Care Team (Late st Contact Info) Description 12/01/2016 Conversion Encounter [facility] [address] [place] [address] Social History Tobacco Use Types Packs/Day Years [...] on filedocumented in this encounter Care Teams Restaurant Shift Supervisor Relationship Specialty Start Date End Date Lazara Valdez MD [address] [place] [address] PCP - General 11/25/16 03/27/23 documented as of this encounter
--- OUTSIDE RECORDS SUMMARY | 2024-07-31 16:46 | XMS_ITS | Clinical Summary ---
Author Organization [facility] Address [address] [place] [address] Phone Care Team Providers Care Reheat Furnace Operator Name Role Phone Unavailable Primary Care Provider [...] support coping. PLAN: 1. Follow up with [facility] two weeks 2. Patient goal is to [...] support coping. PLAN: 1. Follow up with [facility] two weeks 2. Patient goal is to [...] by Dr. Musa, Neurologist, in October 2018. [place] to have migraine without aura - given [...] 01/21/2021, 01/08/2020 Procedures * Due to [place] algr[place] law, this organization might not be sharing sensitive test results. Procedure Name Priority Date/Time Associated Diagnosis Comments CHLAMYDIA AND GONORRHEA, AMPLIFIED Routine 03/01/2022 11:20 AM EST Encounter for screening examination for chlamydial infection from Last 3 Months or Most Recently Relevant to Health Maintenance Results * Due to [place] al[place] law, this organization might not be sharing sensitive test results. * Chlamydia and Gonorrhoea, Amplified (03/01/2022 11:20 AM EST) Chlamydia Trachomatis, DNA Probe NEGATIVE (NEG) [facility] Comment: No Chlamydia Trachomatis RNA detected in this patient's sample ? (REFERENCE RANGE/NORMAL VALUE: NOT DETECTED) ? Note: This test uses cytogenetics laboratory manager- mediated amplification method to detect rRNA from C. Trachomatis URINE GC AMP PROBE NEGATIVE (NEG) [facility] Comment: No Neisseria Gonorrhoeae RNA detected in this patient's sample ? (REFERENCE RANGE/NORMAL VALUE: NOT DETECTED) ? NOTE: This test uses cytogenetics laboratory manager-mediated amplification method to detect rRNA from N.Gonorrhoeae. [...] without risk of sexual abuse. Consult the [facility] if needed. Contact phone number . Therapeutic failure or success cannot be determined with the Aptima Combo2 assay since nucleic acid may persist following appropriate antimicrobial therapy. The Centers for Disease Control and Prevention (CDC) recommends confirmatory retesting using culture or a different nucleic acid amplification test when positive results occur, if indicated. Testing performed or reported by [facility], a Service of [facility], [facility] [address], [place] [address] Jaime Jones MD, Accounting Manager Controller MARY# [id number] Urine (Urine) 03/01/2022 11: 20 AM EST 03/01/2022 7:50 PM EST us Lazara Valdez MD LAB MICROBIOLOGY - GENERAL ORDERABLES Final Result [facility] from Last 3 Months or Most Recently Relevant to Health Maintenance
--- OUTSIDE RECORDS SUMMARY | 2024-07-31 16:46 | XMS_ITS | Encounter Summary ---
Author Organization [facility] Address [address] [place] [address] Phone Care Team Providers Care Balling Machine Operator Name Role Phone Lazara Valdez MD Primary Care Provider Encounter Details Date Type Department Care Team (Late st Contact Info) Description 01/06/2016 Documentation [facility] [place] [address] [place], [place] [phone] Family Medicine, Physician [address] [place], [place] [address]291 Social History Tobacco Use Types Packs/Day Years [...] on filedocumented in this encounter Care Teams Balling Machine Operator Relationship Specialty Start Date End Date Lazara Valdez MD [address] [place] [address] PCP - General 11/25/16 03/27/23 documented as of this encounter
== END 2024-07-31 15:26 | disposition home or self-care (01) ==
LOC: HO.HWSM 14:00
PROVIDERS: Visit Provider Advanced Practice Midwife
DX: Z01.419 Encounter for gynecological examination (general) (routine) without abnormal findings (principal); Z78.9 Other specified health status
CPT/HCPCS: 99385; 99459

== ENCOUNTER 2024-07-31 13:59 | Outpatient (REF) | payer OTHER, SELFPAY ==
--- OUTSIDE RECORDS SUMMARY | 2024-07-31 18:00 | XMS_ITS | Clinical Summary ---
Author Organization [facility] Address [address] [place] [address] Phone Care Team Providers Care Reed Press Feeder Name Role Phone Unavailable Primary Care Provider [...] support coping. PLAN: 1. Follow up with [facility] two weeks 2. Patient goal is to [...] support coping. PLAN: 1. Follow up with [facility] two weeks 2. Patient goal is to [...] by Dr. Musa, Neurologist, in October 2018. [place] to have migraine without aura - given [...] Completed 01/21/2021, 01/08/2020 Procedures * Due to [place] [employer] law, this organization might not be sharing sensitive test results. Procedure Name Priority Date/Time Associated Diagnosis Comments CHLAMYDIA AND GONORRHEA, AMPLIFIED Routine 03/01/2022 11:20 AM EST Encounter for screening examination for chlamydial infection from Last 3 Months or Most Recently Relevant to Health Maintenance Results * Due to [place] [employer] law, this organization might not be sharing sensitive test results. * Chlamydia and Gonorrhoea, Amplified (03/01/2022 11:20 AM EST) Chlamydia Trachomatis, DNA Probe NEGATIVE (NEG) [facility] Comment: No Chlamydia Trachomatis RNA detected in this patient's sample ? (REFERENCE RANGE/NORMAL VALUE: NOT DETECTED) ? Note: This test uses glass bead maker- mediated amplification method to detect rRNA from C. Trachomatis URINE GC AMP PROBE NEGATIVE (NEG) [facility] Comment: No Neisseria Gonorrhoeae RNA detected in this patient's sample ? (REFERENCE RANGE/NORMAL VALUE: NOT DETECTED) ? NOTE: This test uses glass bead maker-mediated amplification method to detect rRNA from N.Gonorrhoeae. [...] without risk of sexual abuse. Consult the [facility] if needed. Contact phone number . Therapeutic failure or success cannot be determined with the Aptima Combo2 assay since nucleic acid may persist following appropriate antimicrobial therapy. The Centers for Disease Control and Prevention (CDC) recommends confirmatory retesting using culture or a different nucleic acid amplification test when positive results occur, if indicated. Testing performed or reported by [facility], a Service of [facility], [facility] [address], [place] [address] Jaime Jones MD, Medical Review Specialist MARY# [id number] Urine (Urine) 03/01/2022 11: 20 AM EST 03/01/2022 7:50 PM EST us Lazara Valdez MD LAB MICROBIOLOGY - GENERAL ORDERABLES Final Result [facility] from Last 3 Months or Most Recently Relevant to Health Maintenance
--- OUTSIDE RECORDS SUMMARY | 2024-07-31 18:00 | XMS_ITS | Encounter Summary ---
Author Organization [facility] Address [address] [place] [address] Phone Care Team Providers Care Patrol Driver Name Role Phone Lazara Valdez MD Primary Care Provider Encounter Details Date Type Department Care Team (Late st Contact Info) Description 12/18/2009 Documentation [facility] [place] Family Medicine [address] [place] [address] Family Medicine, Physician [address] [place], [place] [phone] Social History Tobacco Use Types Packs/Day Years [...] on filedocumented in this encounter Care Teams Patrol Driver Relationship Specialty Start Date End Date Lazara Valdez MD [address] [place] [address] PCP - General 11/25/16 03/27/23 documented as of this encounter
--- OUTSIDE RECORDS SUMMARY | 2024-07-31 18:00 | XMS_ITS | Encounter Summary ---
Author Organization [facility] Address [address] [place] [address] Phone Care Team Providers Care Pharmaceutical Officer Name Role Phone Lazara Valdez MD Primary Care Provider Encounter Details Date Type Department Care Team (Late st Contact Info) Description 03/06/2010 Documentation [facility] [place] Family Medicine [address] [place], [place] [phone] Family Medicine, Physician [address] [place], [place] 9[address] Social History Tobacco Use Types Packs/Day Years [...] on filedocumented in this encounter Care Teams Pharmaceutical Officer Relationship Specialty Start Date End Date Lazara Valdez MD [address] [place] [address] PCP - General 11/25/16 03/27/23 documented as of this encounter
--- OUTSIDE RECORDS SUMMARY | 2024-07-31 18:00 | XMS_ITS | Encounter Summary ---
Author Organization [facility] Address [address] [place] [address] Phone Care Team Providers Care Venereal Disease Investigator Name Role Phone Lazara Valdez MD Primary Care Provider Encounter Details Date Type Department Care Team (Late st Contact Info) Description 12/31/2009 Documentation [facility] [place] [address] [place], [place] [phone] Family Medicine, Physician [address] [place], [place] 973171 Social History Tobacco Use Types Packs/Day Years [...] on filedocumented in this encounter Care Teams Venereal Disease Investigator Relationship Specialty Start Date End Date Lazara Valdez MD [address] [place] [address] PCP - General 11/25/16 03/27/23 documented as of this encounter
--- OUTSIDE RECORDS SUMMARY | 2024-07-31 18:00 | XMS_ITS | Encounter Summary ---
Author Organization [facility] Address [address] [place] [address] Phone Care Team Providers Care Linen Room Attendant Name Role Phone Lazara Valdez MD Primary Care Provider [phone] Encounter Details Date Type Department Care Team (Late st Contact Info) Description 12/01/2016 Conversion Encounter [facility] [address] [place] [address] Social History Tobacco Use Types Packs/Day Years [...] on filedocumented in this encounter Care Teams Linen Room Attendant Relationship Specialty Start Date End Date Lazara Valdez MD [address] [place] [address] PCP - General 11/25/16 03/27/23 documented as of this encounter
--- OUTSIDE RECORDS SUMMARY | 2024-07-31 18:00 | XMS_ITS | Encounter Summary ---
Author Organization [facility] Address [address] [place] [address] Phone Care Team Providers Care Appliquer Zigzag Name Role Phone Lazara Valdez MD Primary Care Provider Encounter Details Date Type Department Care Team (Late st Contact Info) Description 12/28/2013 Documentation [facility] [place] Family Medicine [address] [place], [place] [phone] Family Medicine, Physician [address] [place], [place] [address] Social History Tobacco Use Types Packs/Day Years [...] on filedocumented in this encounter Care Teams Appliquer Zigzag Relationship Specialty Start Date End Date Lazara Valdez MD [address] [place] [address] PCP - General 11/25/16 03/27/23 documented as of this encounter
--- OUTSIDE RECORDS SUMMARY | 2024-07-31 18:00 | XMS_ITS | Encounter Summary ---
Author Organization [facility] Address [address] [place] [address] Phone Care Team Providers Care Knit Goods Mender Name Role Phone Lazara Valdez MD Primary Care Provider Encounter Details Date Type Department Care Team (Late st Contact Info) Description 01/05/2010 Documentation [facility] [place] [address] [place], [place] [phone] Family Medicine, Physician [address] [place], [place] 345531 Social History Tobacco Use Types Packs/Day Years [...] on filedocumented in this encounter Care Teams Knit Goods Mender Relationship Specialty Start Date End Date Lazara Valdez MD [address] [place] [address] PCP - General 11/25/16 03/27/23 documented as of this encounter
--- OUTSIDE RECORDS SUMMARY | 2024-07-31 18:00 | XMS_ITS | Encounter Summary ---
Author Organization [facility] Address [address] [place] [address] Phone Care Team Providers Care Rug Designer Name Role Phone Lazara Valdez MD Primary Care Provider Encounter Details Date Type Department Care Team (Late st Contact Info) Description 01/06/2016 Documentation [facility] [place] [address] [place], [place] [phone] Family Medicine, Physician [address] [place], [place] [address] Social History Tobacco Use Types Packs/Day Years [...] on filedocumented in this encounter Care Teams Rug Designer Relationship Specialty Start Date End Date Lazara Valdez MD [address] [place] [address] PCP - General 11/25/16 03/27/23 documented as of this encounter
== END 2024-07-31 14:00 | disposition home or self-care (01) ==
LOC: HO.LAB 13:59
PROVIDERS: Visit Provider Advanced Practice Midwife
DX: Z13.89 Encounter for screening for other disorder (principal)

== ENCOUNTER 2024-07-31 15:23 | Outpatient (REF) | payer OTHER, SELFPAY ==
[2024-08-01 08:52] LABS: Bacterial Vaginosis PCR NEGATIVE (Negative); Candida Group PCR NOT DETECTED (Not Detect); Candida glab krusei PCR NOT DETECTED (Not Detect); Trichomonas vaginalis PCR NOT DETECTED (Not Detect)
[2024-08-01 09:23] LABS: CT PCR NOT DETECTED (Not Detect.); NG PCR NOT DETECTED (Not Detect.)
== END 2024-07-31 15:24 | disposition home or self-care (01) ==
LOC: HO.LNP 15:23
PROVIDERS: Visit Provider Advanced Practice Midwife
DX: Z00.00 Encounter for general adult medical examination without abnormal findings (principal); N89.8 Other specified noninflammatory disorders of vagina; Z20.2 Contact with and (suspected) exposure to infections with a predominantly sexual mode of transmission; R87.619 Unspecified abnormal cytological findings in specimens from cervix uteri
CPT/HCPCS: 81515; 87491; 87591; 88175

== ENCOUNTER 2024-09-02 10:52 | Outpatient (AMB) | payer SELFPAY ==
--- NOTE | 2024-09-02 11:00 | A.OFFPC_ITS ---
Vital Signs 09/02/24 11:01 Height 5 ft 2 in Weight 109 lb 6 oz BMI 20.0 BP 110/72 Blood Pressure Location Lt brachial Position Sitting Pulse 54 Pulse Source Pulse Oximeter Temp 97.1 F Temp Source Temporal Artery Scan Pulse Oximetry (%) 96 Oxygen Delivery Method Room Air Intake Visit Reasons: f/u stomach pain Intake Note: Patient is here to follow up on Stomach pain. System Specialist Required: No Advertising Representative: Not Required per policy Accompanied by: Self / Same As Patient Allergies No Known Allergies Allergy (Verified 09/02/24 11:01) Medication List - Last Reconciled 09/02/24 by Abigail Flores PA-C cholecalciferol (vitamin D3) 25 mcg PO DAILY Tobacco use date assessed: 09/02/24 Dental Screening Dental Screen Date: 06/03/24 HPI f/u stomach pain HPI Details 24-year-old female last seen 05/2024 com ing in for follow up. At her last visit patient was reporting chest pain stress test was ordered, PFT was ordered for shortness of breath. Patient was reporting abdominal pain advised FODMAP diet, food journal and adding fiber supplement.? Patient also reporting left breast pain and mammogram and ultrasound were ordered for further evaluation. Stress test was performed 07/2023 negative for ischemia.?PFT was normal. And left breast ultrasound was negative for acute findings. Breast pain: The ultrasonography of the breast was unremarkable, and a mammogram will be evaluated for completion. Symptoms remain present without escalation in intensity. Shortness of breath: Previously worse due to allergies, the condition improved after commencing Aminata. Chest pain: Although pulmonary and stress tests were normal, persistent chest pain has indicated the need for a nuclear stress test Gastrointestinal issues: Symptoms improve with dietary management, as patient identifies exacerbations primarily due to specific foods, correlating with episodes of diarrhea. [facility] Medical History Asthma Surgical History No pertinent past surgical history Family History Maternal Grandmother Breast cancer Social History Housing: Condominium Alcohol intake: never Patient Tobacco Use Status: Never used Tobacco e-Cigarette/Vaping Use: Never Used Second Hand Smoke Exposure: No service: No Current occupational status: employed Current occupation: Cosmatologist Cognitive needs: No Hearing needs: No Vision needs: No Female Reproductive History Menstrual Age of Menarche: 16 Questionnaire Thrive Questionnaire Date Thrive assessed: 06/03/24 I am a: Patient What is your living situation today?: I have a steady place to live Within the past 12 months, did the food you bought not last and you didn't have the money to get more?: Never true Within the past 12 months, did you worry whether your food would run out before you got money to buy more?: Never true Do you have trouble paying for medicines?: No Do you have trouble getting transportation to medical appointments?: No Do you have trouble paying your heating and electricity bill?: No Do you have trouble taking care of your child, family member or friend?: No Do you have trouble with day-to-day activities such as bathing, preparing meals, shopping, managing finances, etc.?: No Are you currently unemployed and looking for a job?: No Are you interested in more education?: No Please select the resources that you would like help with: None Currently or been in a relationship where the following occur: No concerns reported THRIVE Score: 0 AUDIT C Alcohol Use Questionnaire (AUDIT-C) 2. How many drinks containing alcohol do you have on a typical day when you are drinking?: 1 or 2 3. How often do you have six or more drinks on one occasion?: Never Total Score: 0 ANGELITO-7 AMB Questionnaire ANGELITO-7 Date ANGELITO - 7 assessed: 06/03/24 Source: Developed by Drs. Jaime Mohr, Tamar Ibanez, Casper Mo and colleagues, with an educational juana from [employer]. Review of Systems Const Denies body aches, Denies chills, Denies fever(s), Denies headache(s) and Denies poor appetite Eyes Reports no additional complaints ENT Denies dysphagia, Denies dizziness, Denies headache(s) and Denies odynophagia Card Denies chest pain, Denies syncope, Denies edema, Denies irregular heart rhythm, Denies lightheadedness and Denies dyspnea Resp Denies cough and Denies dyspnea GI Denies abdominal pain, Denies constipation, Denies dysphagia, Denies diarrhea, Denies nausea, Denies odynophagia and Denies vomiting Reports no additional complaints Musc Reports no additional complaints and Denies abnormal gait Skin/Breast Reports system reviewed and no additional complaints, except as documented Neuro Denies abnormal gait, Denies dizziness, Denies syncope and Denies headache(s) Psych Reports no additional complaints Physical exam (Primary Care) Vital Signs: Last Vital Signs Temp 97.1 F 09/02/24 11:01 Oxygen Delivery Method Room Air 09/02/24 11:01 BMI result Body Mass Index 20.0 Tobacco/Smoking Status: Tobacco use Status Tobacco use date assessed 06/03/24 06/14/24 09:55 Patient Tobacco Use Status Never used Tobacco 06/14/24 09:55 e-Cigarette/Vaping Use Never Used 06/14/24 09:55 Thrive Assessment: Date of Thrive Assessment Date Thrive assessed 06/03/24 06/14/24 09:55 Currently or been in a relationship where the following occur: No concerns reported Const General: cooperative, healthy appearing, comfortable and no acute distress Orientation/consciousness: patient oriented x3 HENMT Head: Yes normocephalic Ears: hearing grossly normal bilaterally General nose exam: Normal external nose present Eyes General: appearance normal, both eyes and all related structures Conjunctivae: conjunctivae normal Neck Neck: Yes full ROM and Yes no lymphadenopathy Resp Effort & Inspection: normal respiratory effort Auscultation: clear to auscultation bilaterally, no crackles, no rales, no rhonchi and no wheezes Cardio Rate: regular rate Rhythm: regular rhythm Skin General skin exam: no rashes or lesions noted Neuro General: patient oriented x3 Gait exam (Neuro): Normal gait present Extrem General: Yes normal to inspection, Yes full ROM and No edema Psych Affect: normal affect Attitude: cooperative Insight: Good insight present (Psych) Judgement: Good judgement present (Psych) Coding Level of Care Code Est Pt Level 3 (88328) Diagnoses Other chest pain R07.89 Chest pain type: other chest pain Shortness of breath R06.02 Abdominal pain R10.9 Breast pain, left N64.4 Seasonal allergies J30.2 Assessment & Plan Assessment & Plan (1) Chest pain: Code(s): R07.9 - Chest pain, unspecified Category: Medical Qualifiers: Chest pain type: other chest pain Qualified Code(s): R07.89 - Other chest pain Plan: Patient reporting chest pain with exertion primarily with cardio while at the gym and while running around. Initial cardiac stress test was negative for ischemia however patient having increased chest pain recommended by Cardiology to have dobutamine stress test which was ordered. Chest pain has been improving since last visit (2) Shortness of breath: Code(s): R06.02 - Shortness of breath Category: Medical Plan: Patient complaining of occasional shortness of breath primarily with exercising and chest tightness. She does have a history of asthma as a child but states she has not had any exacerbations in several years. Pulmonary function test was negative. Shortness of breath has been improving since last visit may be related to allergies as well continue on Aminata. (3) Abdominal pain: Code(s): R10.9 - Unspecified abdominal pain Category: Medical Plan: Patient complaining of lower abdominal pain and cramping after meals typically followed by diarrhea. Patient has been following low FODMAP diet and reintroducing certain foods. She is identify triggers such as coffee, soda and fried foods and has been avoiding these foods and has noticed an improvement in her abdominal pain as well as the diarrhea. Plan to incorporate fiber rich foods in his diet as well. Patient to continue to monitor her symptoms and follow up as needed for this concern. (4) Breast pain, left: Code(s): N64.4 - Mastodynia Category: Medical Plan: Patient complaining of left breast pain for several years. Patient does have a history of breast cancer. Ultrasound was negative. Reviewed with patient red f lag symptoms and when to present for re-evaluation (5) Seasonal allergies: Code(s): J30.2 - Other seasonal allergic rhinitis Category: Medical Plan: Patient currently using Aminata for treatment of seasonal allergies and feels has been helpful for her shortness of breath. Can consider referral to english composition instructor if symptoms do not resolve Plan I plan to investigate the missed mammogram that was originally ordered alongside the breast ultrasound. A nuclear stress test is scheduled to further evaluate her persistent chest pain. The patient should continue dietary management to alleviate symptoms of irritable bowel syndrome and avoid trigger foods and drinks. Current treatment with Aminata should continue to help manage allergy symptoms. I will monitor vitamin D levels and advise dietary methods to ensure adequate intake of vitamin through red meats and leafy greens. This note was constructed using voice recognition software. While every effort has been made to ensure accuracy and top former, still areas may have been included sometimes these areas may affect the content or meeting of the given symptoms. Total time spent caring for the patient today was 30 minutes. This includes time spent before the visit reviewing the chart, time spent during the visit, and time spent after the visit and documentation. Patient was informed and verbally consented to the use of an ambient scribe for clinic note documentation during this visit.
[2024-09-02 11:01] VITALS: BP 110/72; PULSE 54; TEMP 36.2; O2SAT 96
--- OUTSIDE RECORDS SUMMARY | 2024-09-02 11:29 | XMS_ITS | Encounter Summary ---
Author Organization [facility] Address [address] [place] [address] Phone Care Team Providers Care Dairy Nutrition Specialist Name Role Phone Lazara Valdez MD Primary Care Provider [phone] Encounter Details Date Type Department Care Team (Late st Contact Info) Description 12/18/2009 Documentation [facility] [place] [address] [place] [address] Family Medicine, Physician [address] [place], [place] [address] Social History Tobacco Use Types Packs/Day Years [...] on filedocumented in this encounter Care Teams Dairy Nutrition Specialist Relationship Specialty Start Date End Date Lazara Valdez MD [address] [place] [address] PCP - General 11/25/16 03/27/23 documented as of this encounter
--- OUTSIDE RECORDS SUMMARY | 2024-09-02 11:29 | XMS_ITS | Encounter Summary ---
Author Organization [facility] Address [address] [place] [address] Phone Care Team Providers Care Casting Carrier Name Role Phone Lazara Valdez MD Primary Care Provider Encounter Details Date Type Department Care Team (Late st Contact Info) Description 12/28/2013 Documentation [facility] [place] [address] [place], [place] [phone] Family Medicine, Physician [address] [place], [place] [address] Social History Tobacco Use Types Packs/Day Years [...] on filedocumented in this encounter Care Teams Casting Carrier Relationship Specialty Start Date End Date Lazara Valdez MD [address] [place] [address] PCP - General 11/25/16 03/27/23 documented as of this encounter
--- OUTSIDE RECORDS SUMMARY | 2024-09-02 11:29 | XMS_ITS | Encounter Summary ---
Author Organization [facility] Address [address] [place] [address] Phone Care Team Providers Care Freight Manager Name Role Phone Lazara Valdez MD Primary Care Provider Encounter Details Date Type Department Care Team (Late st Contact Info) Description 03/06/2010 Documentation [facility] [place] Family Medicine [address] [place], [place] [phone] Family Medicine, Physician [address] [place], [place] [address] Social History Tobacco Use Types Packs/Day Years [...] on filedocumented in this encounter Care Teams Freight Manager Relationship Specialty Start Date End Date Lazara Valdez MD [address] [place] [address] PCP - General 11/25/16 03/27/23 documented as of this encounter
--- OUTSIDE RECORDS SUMMARY | 2024-09-02 11:29 | XMS_ITS | Clinical Summary ---
Author Organization [facility] Address [address] [place] [address] Phone Care Team Providers Care Cook Italian Style Food Name Role Phone Unavailable Primary Care Provider [...] by Dr. Musa, Neurologist, in October 2018. Guy to have migraine without aura - given [...] Completed 01/21/2021, 01/08/2020 Procedures * Due to [place] [employer] law, this organization might not be sharing sensitive test results. Procedure Name Priority Date/Time Associated Diagnosis Comments CHLAMYDIA AND GONORRHEA, AMPLIFIED Routine 03/01/2022 11:20 AM EST Encounter for screening examination for chlamydial infection from Last 3 Months or Most Recently Relevant to Health Maintenance Results * Due to [place] [employer] law, this organization might not be sharing sensitive test results. * Chlamydia and Gonorrhoea, Amplified (03/01/2022 11:20 AM EST) Chlamydia Trachomatis, DNA Probe NEGATIVE (NEG) [facility] Comment: No Chlamydia Trachomatis RNA detected in this patient's sample ? (REFERENCE RANGE/NORMAL VALUE: NOT DETECTED) ? Note: This test uses authorization specialist- mediated amplification method to detect rRNA from C. Trachomatis URINE GC AMP PROBE NEGATIVE (NEG) [facility] Comment: No Neisseria Gonorrhoeae RNA detected in this patient's sample ? (REFERENCE RANGE/NORMAL VALUE: NOT DETECTED) ? NOTE: This test uses authorization specialist-mediated amplification method to detect rRNA from N.Gonorrhoeae. [...] risk of sexual abuse. Consult the [facility] if needed. Contact phone number . Therapeutic failure or success cannot be determined with the Aptima Combo2 assay since nucleic acid may persist following appropriate antimicrobial therapy. The Centers for Disease Control and Prevention (CDC) recommends confirmatory retesting using culture or a different nucleic acid amplification test when positive results occur, if indicated. Testing performed or reported by [facility], a Service of [facility], [facility] [address], [place] [address] Jaime Jones MD, Curtain Mender MARY# [id number] Urine (Urine) 03/01/2022 11: 20 AM EST 03/01/2022 7:50 PM EST us Lazara Valdez MD LAB MICROBIOLOGY - GENERAL ORDERABLES Final Result [facility] from Last 3 Months or Most Recently Relevant to Health Maintenance
--- OUTSIDE RECORDS SUMMARY | 2024-09-02 11:29 | XMS_ITS | Encounter Summary ---
Author Organization [facility] Address [address] [place] [address] Phone Care Team Providers Care Fine Arts Teacher Name Role Phone Lazara Valdez MD Primary Care Provider Encounter Details Date Type Department Care Team (Late st Contact Info) Description 12/31/2009 Documentation [facility] [place] [address] [place], [place] [id number] Family Medicine, Physician [address] [place], [place] 22[address] Social History Tobacco Use Types Packs/Day Years [...] on filedocumented in this encounter Care Teams Fine Arts Teacher Relationship Specialty Start Date End Date Lazara Valdez MD [address] [place] [address] PCP - General 11/25/16 03/27/23 documented as of this encounter
--- OUTSIDE RECORDS SUMMARY | 2024-09-02 11:30 | XMS_ITS | Encounter Summary ---
Author Organization [facility] Address [address] [place] [address] Phone Care Team Providers Care Software Developer Mid Level Name Role Phone Lazara Valdez MD Primary Care Provider [phone] Encounter Details Date Type Department Care Team (Late st Contact Info) Description 01/05/2010 Documentation [facility] [place] [address] [place] [address] Family Medicine, Physician [address] [place], [place] [phone] Social History Tobacco Use Types Packs/Day Years [...] on filedocumented in this encounter Care Teams Software Developer Mid Level Relationship Specialty Start Date End Date Lazara Valdez MD [address] [place] [address] PCP - General 11/25/16 03/27/23 documented as of this encounter
--- OUTSIDE RECORDS SUMMARY | 2024-09-02 11:30 | XMS_ITS | Encounter Summary ---
Author Organization [facility] Address [address] [place] [address] Phone Care Team Providers Care Finance Mgr Name Role Phone Lazara Valdez MD Primary Care Provider Encounter Details Date Type Department Care Team (Late st Contact Info) Description 12/01/2016 Conversion Encounter [facility] [address] [place] [address] Social History Tobacco Use Types Packs/Day Years [...] on filedocumented in this encounter Care Teams Finance Mgr Relationship Specialty Start Date End Date Lazara Valdez MD [address] [place] [address] PCP - General 11/25/16 03/27/23 documented as of this encounter
--- OUTSIDE RECORDS SUMMARY | 2024-09-02 11:30 | XMS_ITS | Encounter Summary ---
Author Organization [facility] Address [address] [place] [address] Phone Care Team Providers Care Intertype Operator Name Role Phone Lazara Valdez MD Primary Care Provider Encounter Details Date Type Department Care Team (Late st Contact Info) Description 01/06/2016 Documentation [facility] [place] [address] [place], [place] [phone] Family Medicine, Physician [address] [place], [place] 6[address]01 Social History Tobacco Use Types Packs/Day Years [...] on filedocumented in this encounter Care Teams Intertype Operator Relationship Specialty Start Date End Date Lazara Valdez MD [address] [place] [address] PCP - General 11/25/16 03/27/23 documented as of this encounter
== END 2024-09-02 11:26 | disposition home or self-care (01) ==
LOC: HO.HMCH 10:53
DX: R07.89 Other chest pain (principal); R06.02 Shortness of breath; R10.9 Unspecified abdominal pain; N64.4 Mastodynia; J30.2 Other seasonal allergic rhinitis

== ENCOUNTER → 2024-09-02 10:52 | Outpatient (BNVA) | payer SELFPAY | DX: R10.9 Unspecified abdominal pain (principal); R07.89 Other chest pain; R06.02 Shortness of breath; N64.4 Mastodynia; J30.2 Other seasonal allergic rhinitis | CPT/HCPCS: 99212 ==

== ENCOUNTER → 2024-09-16 11:04 | Outpatient (REF) | payer SELFPAY ==
--- NOTE | 2024-09-16 11:07 | CA_ITS ---
Acquisition Time: 2024-09-16 11:18:18 Total Exercise Time: 00:10:00 Test Indications: chest pain Medications: Protocol: POP Max HR: 179 BPM 90% of Pred: 198 BPM Max BP: 122/72 mmHG Max Work Load: 11.7 METS Exercise stress test with exercise 10 mins of Pop Protocol, achieving 87% MPHR, without any anginal symptyoms, without any arrythmias, with normotensive response to exercise. Without EKG changes meeting criteria for ischemia. In recovery, pt continued to feel good. Echo images obtained by tech at rest and post peak exercise. Definity contrast utilized. Test reviewed with Dr. Hauser. Referred By: Abigail Flores Electronically Signed By: Chuy Schneider
--- OUTSIDE RECORDS SUMMARY | 2024-09-16 12:18 | XMS_ITS | Encounter Summary ---
Author Organization [facility] Address [address] [place] [address] Phone Care Team Providers Care Fabric Inspector Name Role Phone Lazara Valdez MD Primary Care Provider Encounter Details Date Type Department Care Team (Late st Contact Info) Description 12/31/2009 Documentation [facility] [place] [address] [place], [place] [phone] Family Medicine, Physician [address] [place], [place] [address] Social History Tobacco Use Types Packs/Day Years [...] on filedocumented in this encounter Care Teams Fabric Inspector Relationship Specialty Start Date End Date Lazara Valdez MD [address] [place] [address] PCP - General 11/25/16 03/27/23 documented as of this encounter
== END ==
LOC: HO.CARD 11:04
DX: R94.39 Abnormal result of other cardiovascular function study (principal)
CPT/HCPCS: 93350; Q9957

== ENCOUNTER → 2024-09-16 11:07 | Outpatient (BNV) | payer SELFPAY | DX: R07.9 Chest pain, unspecified (principal) | CPT/HCPCS: 93016; 93018; 93350; 93352 ==

== ENCOUNTER 2024-11-18 06:38 | Outpatient (REF) | payer OTHER, SELFPAY ==
--- OUTSIDE RECORDS SUMMARY | 2024-11-18 06:42 | XMS_ITS | Encounter Summary ---
Author Organization [facility] Address [address] [place] [address] Phone Care Team Providers Care Resident Care Aide Name Role Phone Lazara Valdez MD Primary Care Provider Encounter Details Date Type Department Care Team (Late st Contact Info) Description 12/31/2009 Documentation [facility] [place] [facility] [place] [address] [place] [address] Family Medicine, Physician [address] [place], [place] [address] Social History Tobacco Use Types Packs/Day Years [...] on filedocumented in this encounter Care Teams Resident Care Aide Relationship Specialty Start Date End Date Lazara Valdez MD [address] [place] [address] PCP - General 11/25/16 03/27/23 documented as of this encounter
[2024-11-21 05:19] LABS: TS Negative Control Passed; TS Panel A 1; TS Panel B 0; TS Positive Control Passed; TSpotTB Negative (Negative)
== END 2024-11-18 06:39 | disposition home or self-care (01) ==
LOC: HO.LAB 06:38
DX: Z00.00 Encounter for general adult medical examination without abnormal findings (principal); Z11.1 Encounter for screening for respiratory tuberculosis
CPT/HCPCS: 36415; 86481

== ENCOUNTER 2024-12-13 14:29 | Outpatient (AMB) | payer OTHER, SELFPAY ==
--- OUTSIDE RECORDS SUMMARY | 2024-12-13 14:32 | XMS_ITS | Encounter Summary ---
Author Organization [facility] Address [address] [place] [address] Phone Care Team Providers Care Windshield Technician Name Role Phone Lazara Valdez MD Primary Care Provider [phone] Encounter Details Date Type Department Care Team (Late st Contact Info) Description 12/31/2009 Documentation [facility] [place] [address] [place], [place] [phone] Family Medicine, Physician [address] [place], [place] [address] Social History Tobacco Use Types Packs/Day Years [...] on filedocumented in this encounter Care Teams Windshield Technician Relationship Specialty Start Date End Date Lazara Valdez MD [address] [place] [address] PCP - General 11/25/16 03/27/23 documented as of this encounter
--- OUTSIDE RECORDS SUMMARY | 2024-12-13 14:32 | XMS_ITS | Encounter Summary ---
Author Organization [facility] Address [address] [place] [address] Phone Care Team Providers Care Travel Specialist Name Role Phone Lazara Valdez MD Primary Care Provider [phone] Encounter Details Date Type Department Care Team (Late st Contact Info) Description 12/28/2013 Documentation [facility] [place] [address] [place], [place] [phone] Family Medicine, Physician [address] [place], [place] 261461 Social History Tobacco Use Types Packs/Day Years [...] on filedocumented in this encounter Care Teams Travel Specialist Relationship Specialty Start Date End Date Lazara Valdez MD [address] [place] [address] PCP - General 11/25/16 03/27/23 documented as of this encounter
--- OUTSIDE RECORDS SUMMARY | 2024-12-13 14:33 | XMS_ITS | Encounter Summary ---
Author Organization [facility] Address [address] [place] [address] Phone Care Team Providers Care Recreational Vehicle Resort Manager Name Role Phone Lazara Valdez MD Primary Care Provider Encounter Details Date Type Department Care Team (Late st Contact Info) Description 12/18/2009 Documentation [facility] [place] [address] [place] [address] Family Medicine, Physician [address] [place], [place] [address] Social History Tobacco Use Types Packs/Day Years [...] on filedocumented in this encounter Care Teams Recreational Vehicle Resort Manager Relationship Specialty Start Date End Date Lazara Valdez MD [address] [place] [address] PCP - General 11/25/16 03/27/23 documented as of this encounter
--- OUTSIDE RECORDS SUMMARY | 2024-12-13 14:33 | XMS_ITS | Encounter Summary ---
Author Organization [facility] Address [address] [place] [address] Phone Care Team Providers Care Trial Court Judge Name Role Phone Lazara Valdez MD Primary Care Provider [phone] Encounter Details Date Type Department Care Team (Late st Contact Info) Description 12/01/2016 Conversion Encounter [facility] [address] [place] [address] Social History Tobacco Use Types Packs/Day Years [...] on filedocumented in this encounter Care Teams Trial Court Judge Relationship Specialty Start Date End Date Lazara Valdez MD [address] [place] [address] PCP - General 11/25/16 03/27/23 documented as of this encounter
--- OUTSIDE RECORDS SUMMARY | 2024-12-13 14:33 | XMS_ITS | Encounter Summary ---
Author Organization [facility] Address [address] [place] [address] Phone Care Team Providers Care Gerentological Physiotherapist Name Role Phone Lazara Valdez MD Primary Care Provider Encounter Details Date Type Department Care Team (Late st Contact Info) Description 01/05/2010 Documentation [facility] [place] [address] [place] [address] Family Medicine, Physician [address] [place], [place] 240401 Social History Tobacco Use Types Packs/Day Years [...] on filedocumented in this encounter Care Teams Gerentological Physiotherapist Relationship Specialty Start Date End Date Lazara Valdez MD [address] [place] [address] PCP - General 11/25/16 03/27/23 documented as of this encounter
--- OUTSIDE RECORDS SUMMARY | 2024-12-13 14:33 | XMS_ITS | Encounter Summary ---
Author Organization [facility] Address [address] [place] [address] Phone Care Team Providers Care Box Sealing Machine Catcher Name Role Phone Lazara Valdez MD Primary Care Provider Encounter Details Date Type Department Care Team (Late st Contact Info) Description 01/06/2016 Documentation [facility] [place] [address] [place], [place] [phone] Family Medicine, Physician [address] [place], [place] 788261 Social History Tobacco Use Types Packs/Day Years [...] on filedocumented in this encounter Care Teams Box Sealing Machine Catcher Relationship Specialty Start Date End Date aLzara Valdez MD [address] [place] [address] PCP - General 11/25/16 03/27/23 documented as of this encounter
--- OUTSIDE RECORDS SUMMARY | 2024-12-13 14:33 | XMS_ITS | Encounter Summary ---
Author Organization [facility] Address [address] [place] [address] Phone Care Team Providers Care Registered Dental Assistant Name Role Phone Lazara Valdez MD Primary Care Provider Encounter Details Date Type Department Care Team (Late st Contact Info) Description 03/06/2010 Documentation [facility] [place] [address] [place], [place] [phone] Family Medicine, Physician [address] [place], [place] [address] Social History Tobacco Use Types Packs/Day Years [...] on filedocumented in this encounter Care Teams Registered Dental Assistant Relationship Specialty Start Date End Date Lazara Valdez MD [address] [place] [address] PCP - General 11/25/16 03/27/23 documented as of this encounter
--- OUTSIDE RECORDS SUMMARY | 2024-12-13 14:33 | XMS_ITS | Clinical Summary ---
Author Organization [facility] Address [address] [place] [address] Phone Care Team Providers Care Call Center Support Consultant Name Role Phone Unavailable Primary Care Provider [...] support coping. PLAN: 1. Follow up with [facility] two weeks 2. Patient goal [...] support coping. PLAN: 1. Follow up with [facility] two weeks 2. Patient goal [...] by Dr. Musa, Neurologist, in October 2018. [place] to have migraine without aura - given [...] 56 03/01/2022 10:43 AM EST Temperature 37.1 C (98.7 F) 11/25/2021 3:27 PM EDT Respiratory Rate - - Oxygen Saturation - - Inhaled Oxygen Concentration - - Weight 48.4 kg (106 lb 12.8 oz) 022 10:43 AM EST Height 159.5 cm (5' 2.8 ) 03/01/2022 10 :43 AM EST Body Mass Index 19.04 03/01/2022 10:43 AM EST Plan of Treatment Health Maintenance Due Date Last Done Comments COVID-19 Vaccine (3 - season) 2023 09/15/2020, 08/18/2020 DTaP,Tdap,and Td Vaccines (7 - Td or Tdap) 02/13/2024 02/12/2014, 06/13/2006, 09/23/2003, Additional history exists Influenza Vaccines (#1) 2024 03/01/20, 01/08/2020, 01/03/2019, Additional history exists Pneumococcal Vaccine Aged Out [...] Completed 01/21/2021, 01/08/2020 Procedures * Due to [place] [employer] law, this organization might not be sharing sensitive test results. Procedure Name Priority Date/Time Associated Diagnosis Comments CHLAMYDIA AND GONORRHEA, AMPLIFIED Routine 03/01/2022 11:20 AM EST Encounter for screening examination for chlamydial infection from Last 3 Months or Most Recently Relevant to Health Maintenance Results * Due to [place] [employer] law, this organization might not be sharing sensitive test results. * Chlamydia and Gonorrhoea, Amplified (03/01/2022 11:20 AM EST) Chlamydia Trachomatis, DNA Probe NEGATIVE (NEG) [facility] Comment: No Chlamydia Trachomatis RNA detected in this patient's sample (REFERENCE RANGE/NORMAL VALUE: NOT DETECTED) Note: This test uses business services sales representative- mediated amplification method to detect rRNA from C. Trachomatis URINE GC AMP PROBE NEGATIVE (NEG) [facility] Comment: No Neisseria Gonorrhoeae RNA detected in this patient's sample (REFERENCE RANGE/NORMAL VALUE: NOT DETECTED) NOTE: This test uses business services sales representative-mediated amplification method to detect rRNA from N.Gonorrhoeae. [...] risk of sexual abuse. Consult the [facility] if needed. Contact phone number . Therapeutic failure or success cannot be determined with the Aptima Combo2 assay since nucleic acid may persist following appropriate antimicrobial therapy. The Centers for Disease Control and Prevention (CDC) recommends confirmatory retesting using culture or a different nucleic acid amplification test when positive results occur, if indicated. Testing performed or reported by [facility], a Service of [facility], [facility] [place] [address] Jaime Jones MD, Supervisor Payroll [facility]# [id number] Urine (Urine) 03/01/2022 11: 20 AM EST 03/01/2022 7:50 PM EST us Lazara Valdez MD LAB MICROBIOLOGY - GENERAL ORDERABLES Final Result [facility] from Last 3 Months or Most Recently Relevant to Health Maintenance
--- NOTE | 2024-12-13 14:40 | MHC.PC.OV ---
Vital Signs 12/13/24 14:42 Height 5 ft 2 in Weight 105 lb 2 oz BMI 19.2 BP 102/58 L Blood Pressure Location Lt brachial Position Sitting Pulse 64 Pulse Source Pulse Oximeter Pulse Oximetry (%) 100 Oxygen Delivery Method Room Air Intake Visit Reasons: annual exam Electrical Prospector Required: No Accompanied by: Self / Same As Patient Allergies No Known Allergies Allergy (Verified 12/13/24 15:08) Medication List - Last Reconciled 12/13/24 by Abigail Flores PA-C cholecalciferol (vitamin D3) 25 mcg PO DAILY Tobacco use date assessed: 12/13/24 Dental Screening Dental Screen Date: 12/13/24 Did you have a dental visit in the last 12 months?: Yes Did you have a dental problem in the last 6 months where you did not have access to dental care?: No Was dental information given to patient?: Patient has dentist HPI annual exam HPI Details 24 year old female coming in for annual exam. Presenting for an annual wellness visit. Chest pain and SOB previously experienced, but has improved since last visit. No current episodes reported. pap smear: UTD with litigation partner vaccines: TD was updated today [facility] Medical History Asthma Surgical History No pertinent past surgical history Family History Maternal Grandmother Breast cancer Social History Housing: Condominium Alcohol intake: never Patient Tobacco Use Status: Never used Tobacco e-Cigarette/Vaping Use: Never Used Second Hand Smoke Exposure: No service: No Current occupational status: employed Current occupation: Cosmatologist Cognitive needs: No Hearing needs: No Vision needs: No Female Reproductive History Menstrual Age of Menarche: 16 Questionnaire PHQ-9 Over the last 2 weeks, how often have you been bothered by any of the following problems? 1. Little interest or pleasure in doing things: not at all 2. Feeling down, depressed, or hopeless: not at all 3. Trouble falling or staying asleep, or sleeping too much: not at all 4. Feeling tired or having little energy: not at all 5. Poor appetite or overeating: not at all 6. Feeling bad about yourself - or that you are a failure or have let yourself or your family down: not at all 7. Trouble concentrating on things, such as reading the newspaper or watching television: not at all 8. Moving or speaking so slowly that other people could have noticed. Or the opposite - being so fidgety or restless that you have been moving around a lot more than usual: not at all 9. Thoughts that you would be better off or of hurting yourself in some way: not at all Total score: 0 Depression Screening Interpretation: Negative Depression Screening Done: Yes Source: Developed by Drs. Jaime Mohr, Tamar Ibanez, Casper Mo and colleagues, with an educational juana from [employer]. Thrive Questionnaire Date Thrive assessed: 06/03/24 I am a: Patient What is your living situation today?: I have a steady place to live Within the past 12 months, did the food you bought not last and you didn't have the money to get more?: Never true Within the past 12 months, did you worry whether your food would run out before you got money to buy more?: Never true Do you have trouble paying for medicines?: No Do you have trouble getting transportation to medical appointments?: No Do you have trouble paying your heating and electricity bill?: No Do you have trouble taking care of your child, family member or friend?: No Do you have trouble with day-to-day activities such as bathing, preparing meals, shopping, managing finances, etc.?: No Are you currently unemployed and looking for a job?: No Are you interested in more education?: No Please select the resources that you would like help with: None Currently or been in a relationship where the following occur: No concerns reported THRIVE Score: 0 AUDIT C Alcohol Use Questionnaire (AUDIT-C) 2. How many drinks containing alcohol do you have on a typical day when you are drinking?: 1 or 2 3. How often do you have six or more drinks on one occasion?: Never Total Score: 0 ANGELITO-7 AMB Questionnaire ANGELITO-7 Date ANGELITO - 7 assessed: 06/03/24 Feeling nervous, anxious, or on edge: 0 = Not at all Not being able to stop or control worryin = Not at all Worrying too much about different things: 0 = Not at all Trouble relaxin = Not at all Being so restless that it is hard to sit still: 0 = Not at all Becoming easily annoyed or irritable: 0 = Not at all Feeling afraid as if something awful might happen: 0 = Not at all Total ANGELITO-7 score (0-4 normal; 5-9 mild; 10-14 moderate; 15-21 severe): 0 Source: Developed by Drs. Jaime Mohr, Tamar Ibanez, Casper Mo and colleagues, with an educational juana from [employer]. AGNELITO-7 Assessment Billing ANGELITO-7 Assessment Tool: ANGELITO-7 Assessment 90562 Review of Systems Const Denies body aches, Denies chills, Denies fever(s), Denies headache(s) and Denies poor appetite Eyes Reports no additional complaints ENT Denies dysphagia, Denies dizziness, Denies headache(s) and Denies odynophagia Card Denies chest pain, Denies syncope, Denies edema, Denies irregular heart rhythm, Denies lightheadedness and Denies dyspnea Resp Denies cough and Denies dyspnea GI Denies abdominal pain, Denies constipation, Denies dysphagia, Denies diarrhea, Denies nausea, Denies odynophagia and Denies vomiting Reports no additional complaints Musc Reports no additional complaints and Denies abnormal gait Skin/Breast Reports system reviewed and no additional complaints, except as documented Neuro Denies abnormal gait, Denies dizziness, Denies syncope and Denies headache(s) Psych Reports no additional complaints Physical exam (Primary Care) Vital Signs: Last Vital Signs Pulse 64 12/13/24 14:42 BP 102/58 L 12/13/24 14:42 Pulse Ox 100 12/13/24 14:42 Oxygen Delivery Method Room Air 12/13/24 14:42 BMI result Body Mass Index 19.2 Tobacco/Smoking Status: Tobacco use Status Tobacco use date assessed 12/13/24 12/13/24 14:48 Patient Tobacco Use Status Never used Tobacco 12/13/24 14:48 e-Cigarette/Vaping Use Never Used 12/13/24 14:48 PHQ-9: PHQ-9 Score PHQ-9: Total score 0 12/13/24 15:40 Depression Screening Interpretation: Negative Thrive Assessment: Date of Thrive Assessment Date Thrive assessed 06/03/24 12/13/24 14:48 Currently or been in a relationship where the following occur: No concerns reported Const General: cooperative, healthy appearing, comfortable and no acute distress Orientation/consciousness: patient oriented x3 HENMT Head: Yes normocephalic Ears: hearing grossly normal bilaterally General nose exam: Normal external nose present Eyes General: appearance normal, both eyes and all related structures Conjunctivae: conjunctivae normal Neck Neck: Yes full ROM and Yes no lymphadenopathy Resp Effort & Inspection: normal respiratory effort Auscultation: clear to auscultation bilaterally, no crackles, no rales, no rhonchi and no wheezes Cardio Rate: regular rate Rhythm: regular rhythm Skin General skin exam: no rashes or lesions noted Neuro General: patient oriented x3 Gait exam (Neuro): Normal gait present Extrem General: Yes normal to inspection, Yes full ROM and No edema Psych Affect: normal affect Attitude: cooperative Insight: Good insight present (Psych) Judgement: Good judgement present (Psych) Immunizations Boostrix Tdap 2.5 Lf unit-8 mcg-5 Lf/0.5 mL intramuscular syringe Performing Provider: Abigail Flores PA-C [facility] [place] [facility] Administered by: Reba Thapa LPN on 12/13/24 15:40 Dose Route Admin Location Dispensed Lot Number Expiration Date NDC Chief Architect 0.5 mL IM Left Deltoid 0.5 mL [id number] 02/07/27 [id number] [employer] Total Dispensed Waste 0.5 mL 0 % VIS Given Date VIS Provided VIS Publication Date 12/13/24 Single Vaccine 20 Eligibility Eligibility Date Funding Source Not [facility] Eligible 12/13/24 Private Coding Level of Care Code Est Pt Prev Care [id number]([id number]) Diagnoses Annual physical exam Z00.00 Other chest pain R07.89 Chest pain type: other chest pain Shortness of breath R06.02 Abdominal pain R10.9 Seasonal allergies J30.2 Additional Codes ANGELITO-7 Assessment Billing - ANGELITO-7 Assessment Tool: ANGELITO-7 Assessment 13746 ([id number]) Assessment & Plan Assessment & Plan (1) Annual physical exam: Code(s): Z00.00 - Encounter for general adult medical examination without abnormal findings Category: Medical Plan: Patient is up-to-date on all recommended routine screenings and vaccinations for her age. Tetanus was updated while in the office today. Blood work is up-to-date and has been reviewed with the patient. Plan to follow up yearly or sooner as needed (2) Chest pain: Code(s): R07.9 - Chest pain, unspecified Category: Medical Qualifiers: Chest pain type: other chest pain Qualified Code(s): R07.89 - Other chest pain Plan: Negative cardiopulmonary stress test and chest pain has resolved at this time. (3) Shortness of breath: Code(s): R06.02 - Shortness of breath Category: Medical Plan: Pulmonary function test and cardiopulmonary stress test negative. Patient states symptoms has been improving no current complaints this time (4) Abdominal pain: Code(s): R10.9 - Unspecified abdominal pain Category: Medical Plan: Resolved with dietary changes (5) Seasonal allergies: Code(s): J30.2 - Other seasonal allergic rhinitis Category: Medical Plan: No longer using Aminata and denies any symptoms at this time. Plan During the visit, we discussed the improvement in chest pain and the resolution of shortness of breath. The patient was informed that no further stress testing is necessary unless symptoms recur. We reviewed the normal ultrasound results for breast pain and agreed that no further action is needed unless symptoms change. Preventative care measures, including the recent tuberculosis blood work and tetanus vaccination status, were discussed. The patient is scheduled for a follow-up in one year, with the option to return sooner if needed. This note was constructed using voice recognition software. While every effort has been made to ensure accuracy and search engine optimization specialist, still areas may have been included sometimes these areas may affect the content or meeting of the given symptoms. Total time spent caring for the patient today was 30 minutes. This includes time spent before the visit reviewing the chart, time spent during the visit, and time spent after the visit and documentation. Patient was informed and verbally consented to the use of an ambient scribe for clinic note documentation during this visit. Orders: Orders TDaP Immunization Today Z23 - Encounter for immunization
[2024-12-13 14:42] VITALS: BP 102/58; PULSE 64; O2SAT 100; BMI 19.2
== END 2024-12-13 15:37 | disposition home or self-care (01) ==
LOC: HO.HMCH 14:30
DX: Z00.00 Encounter for general adult medical examination without abnormal findings (principal); R07.89 Other chest pain; R06.02 Shortness of breath; R10.9 Unspecified abdominal pain; J30.2 Other seasonal allergic rhinitis; Z23 Encounter for immunization

== ENCOUNTER → 2024-12-13 14:29 | Outpatient (BNVA) | payer OTHER, SELFPAY | DX: Z00.00 Encounter for general adult medical examination without abnormal findings (principal); R07.89 Other chest pain; R06.02 Shortness of breath; R10.9 Unspecified abdominal pain; J30.2 Other seasonal allergic rhinitis; Z23 Encounter for immunization | CPT/HCPCS: 90471; 90715; 96127 ==